=== PATIENT | male | born 1935 | race Caucasian/White ===

== ENCOUNTER 2017-02-23 12:45 | Inpatient (IN) | payer OTHER, MEDICAID ==
[~2017-02-23] VITALS: Ht 165.1 cm; Wt 77.7 kg
[~2017-02-23 12:45] MED LIST: ACET325T14 PO; ACID1TAB7 PO; ALPR0.25 PO; AMLO10TA2 PO; AMOX1TAB64 PO; ASPI-496 PO; ASPI-621 PO; ASPI-770 PO; ASPI325T4 PO; BISA10SU2 PR; BRIN10DR OP; CALC-545 PO; CEFT1FRO2 IV; CEPH-376 PO; CHOL200024 PO; CLIN300C93 PO; DAPT500V6 IV; DORZ10DR7 EACHEYE; DOXY100T9 PO; ENOX40SY4 SQ; FAMO-79 PO; HUM100IN4 SC; HUM100VI SQ; HUM100VI6 SQ; HYDR-3138 PO; HYDR-3144 PO; HYDR-3240 PO; HYDR-3307 PO; HYDR-3343 PO; HYDR12.547 PO; INSU100I28 SQ-INSULIN; INSU100V10 SQ; LEVO125T5 PO; LEVO25TA4 PO; LEVO750T26 PO; LISI-170 PO; MAGN400O4 PO; METH4TAB2 PO; METH750T87 PO; METO25TA35 PO; METO25TA91 PO; ONDA4TAB10 PO; PANT40TA3 PO; POLY17PO5 PO; PRAV40TA2 PO; SENN8.6T98 PO; SIMV40TA3 PO; SULF1TAB23 PO; SULF1TAB24 PO; SULF1TAB3 PO; TRAM50TA2 PO
[2017-02-23] MEDS ORDERED: ROPI0.5T2 PO (14:11)
[2017-02-23] MEDS ORDERED: LISI1TAB7 PO (14:11)
[2017-02-23] MEDS ORDERED: MUPI1OIN6 TP (14:11)
[2017-02-23] MEDS ORDERED: CLOT15CR6 TP (14:11)
[2017-02-23] MEDS ORDERED: LEVO125T5 PO (14:11)
[2017-02-23] MEDS ORDERED: TRAZ50TA18 PO (14:11)
[2017-02-23] MEDS ORDERED: CEPH-376 PO (14:11)
[2017-02-23] MEDS ORDERED: SODIUM CHLORIDE FLUSH 10ML SYR IVF ONE (14:30)
[2017-02-23 15:46] LABS: ASPARTATE AMINO TRANSFERASE 22 U/L (15-37); BLOOD UREA NITROGEN 49 mg/dL (7-18)
[2017-02-23] MEDS ORDERED: POLYETHYLENE GLYCOL 17 GM PACKET PO PRN (17:00)
[2017-02-23] MEDS: INSULIN REGULAR 100 UNITS/ML, 3ML VIAL SQ-INSULIN SCH ×2 (17:00→20:29)
[2017-02-23] MEDS ORDERED: ONDANSETRON 2MG/ML, 2ML IVP PRN (17:00)
[2017-02-23] MEDS ORDERED: SODIUM CHLORIDE FLUSH 10ML SYR IVF PRN (17:00)
[2017-02-23] MEDS ORDERED: HYDROcodone/APAP 5/325 TABLET ONE (18:13)
[2017-02-23] MEDS: HYDROcodone/APAP 5/325 TABLET PO PRN ×2 (18:18→22:54)
[2017-02-23] MEDS: CEFTAROLINE 600 MG in SODIUM CHLORIDE 0.9% 100 ML IV SCH (20:20)
[2017-02-23] MEDS: ENOXAPARIN 40 MG/0.4 ML SQ SCH (20:20)
[2017-02-23] MEDS: MORPHINE SULFATE 4 MG/ML, 1ML IVPush PRN (20:20)
[2017-02-23] MEDS: CALCIUM/VITAMIN D3 250-125 TABLET PO SCH (20:34)
[2017-02-23] MEDS: TRAZODONE 50MG TABLET PO SCH (20:34)
[2017-02-23] MEDS: METOPROLOL SUCCINATE 25 MG TAB.ER.24H PO SCH (20:34)
[2017-02-23] MEDS: FAMOTIDINE 20 MG TABLET PO SCH (20:34)
[2017-02-23] MEDS: ROPINIROLE 0.5MG TABLET PO SCH (20:34)
[2017-02-23] MEDS: PRAVASTATIN 40 MG TABLET PO SCH (20:34)
[2017-02-23] MEDS: SODIUM CHLORIDE FLUSH 10ML SYR IVF SCH (21:00)
[2017-02-23] MEDS: MUPIROCIN OINT 2%, 22GM TP SCH (21:00)
[2017-02-24 01:18] VITALS: BP 147/62
[2017-02-24 05:02] VITALS: BP 135/56
[2017-02-24] MEDS: INSULIN REGULAR 100 UNITS/ML, 3ML VIAL SQ-INSULIN SCH ×4 (07:00→20:46)
[2017-02-24 07:01] VITALS: BP 73/43
[2017-02-24 07:01] LABS: BLOOD UREA NITROGEN 44 mg/dL (7-18)
[2017-02-24] MEDS ORDERED: SODIUM CHLORIDE 0.9%, 500ML IVBOLUS ONE (08:00)
[2017-02-24] MEDS: LISINOPRIL 20 MG TABLET PO SCH (08:26)
[2017-02-24] MEDS: CEFTAROLINE 600 MG in SODIUM CHLORIDE 0.9% 100 ML IV SCH ×2 (08:33→20:06)
[2017-02-24] MEDS: FAMOTIDINE 20 MG TABLET PO SCH ×2 (08:35→20:07)
[2017-02-24] MEDS: ASPIRIN 325 MG TABLET PO SCH (08:35)
[2017-02-24] MEDS: LEVOTHYROXINE 125 MCG TABLET PO SCH (08:36)
[2017-02-24] MEDS ORDERED: HYDROCHLOROTHIAZIDE 25 MG TABLET PO SCH (09:00)
[2017-02-24] MEDS: CHOLECALCIFEROL 1,000 UNIT TABLET PO SCH (09:40)
[2017-02-24] MEDS: CALCIUM/VITAMIN D3 250-125 TABLET PO SCH ×2 (09:41→20:07)
[2017-02-24] MEDS: SENNA/DOCUSATE TABLET PO SCH (09:41)
[2017-02-24] MEDS: SODIUM CHLORIDE FLUSH 10ML SYR IVF SCH ×2 (09:42→20:45)
[2017-02-24] MEDS: MUPIROCIN OINT 2%, 22GM TP SCH ×2 (09:42→16:00)
[2017-02-24] MEDS: INSULIN DETEMIR 100 UNITS/ML, PEN SQ-INSULIN SCH (09:42)
[2017-02-24 13:30] VITALS: BP 117/69
[2017-02-24 18:54] VITALS: BP 116/64
[2017-02-24] MEDS: PRAVASTATIN 40 MG TABLET PO SCH (20:07)
[2017-02-24] MEDS: ENOXAPARIN 40 MG/0.4 ML SQ SCH (20:07)
[2017-02-24] MEDS: TRAZODONE 50MG TABLET PO SCH (20:07)
[2017-02-24] MEDS: ROPINIROLE 0.5MG TABLET PO SCH (20:07)
[2017-02-24 20:25] VITALS: BP 100/60
[2017-02-24] MEDS: METOPROLOL SUCCINATE 25 MG TAB.ER.24H PO SCH (20:46)
[2017-02-25 00:33] VITALS: BP 161/87
[2017-02-25] MEDS: HYDROcodone/APAP 5/325 TABLET PO PRN ×3 (06:38→20:51)
[2017-02-25] MEDS: INSULIN REGULAR 100 UNITS/ML, 3ML VIAL SQ-INSULIN SCH ×4 (07:00→20:52)
[2017-02-25 07:06] VITALS: BP 106/54
[2017-02-25] MEDS: CEFTAROLINE 600 MG in SODIUM CHLORIDE 0.9% 100 ML IV SCH ×2 (08:18→20:50)
[2017-02-25] MEDS: LEVOTHYROXINE 125 MCG TABLET PO SCH (08:20)
[2017-02-25] MEDS: FAMOTIDINE 20 MG TABLET PO SCH ×2 (08:20→20:51)
[2017-02-25] MEDS: SENNA/DOCUSATE TABLET PO SCH (08:20)
[2017-02-25] MEDS: CHOLECALCIFEROL 1,000 UNIT TABLET PO SCH (08:20)
[2017-02-25 08:21] LABS: BLOOD UREA NITROGEN 30 mg/dL (7-18)
[2017-02-25] MEDS: CALCIUM/VITAMIN D3 250-125 TABLET PO SCH ×2 (08:21→20:51)
[2017-02-25] MEDS: ASPIRIN 325 MG TABLET PO SCH (08:21)
[2017-02-25] MEDS: INSULIN DETEMIR 100 UNITS/ML, PEN SQ-INSULIN SCH (08:21)
[2017-02-25] MEDS: SODIUM CHLORIDE FLUSH 10ML SYR IVF SCH ×2 (08:21→20:50)
[2017-02-25] MEDS: LISINOPRIL 20 MG TABLET PO SCH (08:22)
[2017-02-25 13:21] VITALS: BP 112/52
[2017-02-25 19:00] VITALS: BP 120/78
[2017-02-25] MEDS: METOPROLOL SUCCINATE 25 MG TAB.ER.24H PO SCH (20:34)
[2017-02-25] MEDS: ENOXAPARIN 40 MG/0.4 ML SQ SCH (20:50)
[2017-02-25] MEDS: TRAZODONE 50MG TABLET PO SCH (20:51)
[2017-02-25] MEDS: ROPINIROLE 0.5MG TABLET PO SCH (20:51)
[2017-02-25] MEDS: PRAVASTATIN 40 MG TABLET PO SCH (20:51)
[2017-02-26 00:25] VITALS: BP 100/58
[2017-02-26 06:35] VITALS: BP 149/88
[2017-02-26] MEDS: INSULIN REGULAR 100 UNITS/ML, 3ML VIAL SQ-INSULIN SCH ×4 (07:00→21:04)
[2017-02-26] MEDS: CEFTAROLINE 600 MG in SODIUM CHLORIDE 0.9% 100 ML IV SCH ×2 (09:26→20:52)
[2017-02-26] MEDS: FAMOTIDINE 20 MG TABLET PO SCH ×2 (09:31→20:55)
[2017-02-26] MEDS: LISINOPRIL 20 MG TABLET PO SCH (09:31)
[2017-02-26] MEDS: LEVOTHYROXINE 125 MCG TABLET PO SCH (09:31)
[2017-02-26] MEDS: CHOLECALCIFEROL 1,000 UNIT TABLET PO SCH (09:31)
[2017-02-26] MEDS: ASPIRIN 325 MG TABLET PO SCH (09:31)
[2017-02-26] MEDS: CALCIUM/VITAMIN D3 250-125 TABLET PO SCH ×2 (09:32→20:55)
[2017-02-26] MEDS: INSULIN DETEMIR 100 UNITS/ML, PEN SQ-INSULIN SCH (09:32)
[2017-02-26] MEDS: SODIUM CHLORIDE FLUSH 10ML SYR IVF SCH ×2 (09:33→20:54)
[2017-02-26] MEDS: SENNA/DOCUSATE TABLET PO SCH (09:35)
[2017-02-26 11:36] VITALS: BP 138/64
[2017-02-26 13:30] VITALS: BP 154/67
[2017-02-26 18:55] VITALS: BP 111/50
[2017-02-26] MEDS: ENOXAPARIN 40 MG/0.4 ML SQ SCH (20:53)
[2017-02-26] MEDS: TRAZODONE 50MG TABLET PO SCH (20:54)
[2017-02-26] MEDS: METOPROLOL SUCCINATE 25 MG TAB.ER.24H PO SCH (20:55)
[2017-02-26] MEDS: PRAVASTATIN 40 MG TABLET PO SCH (20:55)
[2017-02-26] MEDS: ROPINIROLE 0.5MG TABLET PO SCH (20:56)
[2017-02-26] MEDS: HYDROcodone/APAP 5/325 TABLET PO PRN (21:27)
[2017-02-27 02:28] VITALS: BP 121/68
[2017-02-27 05:32] LABS: BLOOD UREA NITROGEN 28 mg/dL (7-18)
[2017-02-27 06:58] VITALS: BP 134/74
[2017-02-27] MEDS: INSULIN REGULAR 100 UNITS/ML, 3ML VIAL SQ-INSULIN SCH ×4 (07:00→20:26)
[2017-02-27] MEDS: INSULIN DETEMIR 100 UNITS/ML, PEN SQ-INSULIN SCH (08:35)
[2017-02-27] MEDS: LEVOTHYROXINE 125 MCG TABLET PO SCH (08:35)
[2017-02-27] MEDS: SENNA/DOCUSATE TABLET PO SCH (08:35)
[2017-02-27] MEDS: CALCIUM/VITAMIN D3 250-125 TABLET PO SCH ×2 (08:36→20:17)
[2017-02-27] MEDS: FAMOTIDINE 20 MG TABLET PO SCH ×2 (08:36→20:17)
[2017-02-27] MEDS: CEFTAROLINE 600 MG in SODIUM CHLORIDE 0.9% 100 ML IV SCH ×2 (08:36→20:17)
[2017-02-27] MEDS: ASPIRIN 325 MG TABLET PO SCH (08:36)
[2017-02-27] MEDS: LISINOPRIL 20 MG TABLET PO SCH (08:36)
[2017-02-27] MEDS: SODIUM CHLORIDE FLUSH 10ML SYR IVF SCH ×2 (08:36→20:17)
[2017-02-27] MEDS: CHOLECALCIFEROL 1,000 UNIT TABLET PO SCH (08:36)
[2017-02-27] MEDS: HYDROcodone/APAP 5/325 TABLET PO PRN ×2 (11:08→20:16)
[2017-02-27 14:33] VITALS: BP 120/57
[2017-02-27] MEDS ORDERED: LACTATED RINGERS 500 ML IVBOLUS ONE (17:00)
[2017-02-27 18:45] VITALS: BP 140/68
[2017-02-27] MEDS ORDERED: OMNIPAQUE 350 MG/ML, 150 ML BOTTLE ONE (18:52)
[2017-02-27] MEDS: TRAZODONE 50MG TABLET PO SCH (20:15)
[2017-02-27] MEDS: PRAVASTATIN 40 MG TABLET PO SCH (20:16)
[2017-02-27] MEDS: METOPROLOL SUCCINATE 25 MG TAB.ER.24H PO SCH (20:16)
[2017-02-27] MEDS: ROPINIROLE 0.5MG TABLET PO SCH (20:16)
[2017-02-27] MEDS: ENOXAPARIN 40 MG/0.4 ML SQ SCH (20:17)
[2017-02-28 01:21] VITALS: BP 137/69
[2017-02-28 06:22] LABS: BLOOD UREA NITROGEN 28 mg/dL (7-18)
[2017-02-28 06:37] VITALS: BP 120/64
[2017-02-28] MEDS: SENNA/DOCUSATE TABLET PO SCH (09:00)
[2017-02-28] MEDS: INSULIN DETEMIR 100 UNITS/ML, PEN SQ-INSULIN SCH (09:51)
[2017-02-28] MEDS: CALCIUM/VITAMIN D3 250-125 TABLET PO SCH ×2 (09:51→19:56)
[2017-02-28] MEDS: FAMOTIDINE 20 MG TABLET PO SCH ×2 (09:51→19:57)
[2017-02-28] MEDS: INSULIN REGULAR 100 UNITS/ML, 3ML VIAL SQ-INSULIN SCH ×4 (09:51→20:02)
[2017-02-28] MEDS: CHOLECALCIFEROL 1,000 UNIT TABLET PO SCH (09:51)
[2017-02-28] MEDS: HYDROcodone/APAP 5/325 TABLET PO PRN ×2 (09:52→22:48)
[2017-02-28] MEDS: LEVOTHYROXINE 125 MCG TABLET PO SCH (09:52)
[2017-02-28] MEDS: CEFTAROLINE 600 MG in SODIUM CHLORIDE 0.9% 100 ML IV SCH (09:52)
[2017-02-28] MEDS: LISINOPRIL 20 MG TABLET PO SCH (09:52)
[2017-02-28] MEDS: ASPIRIN 325 MG TABLET PO SCH (09:52)
[2017-02-28] MEDS: SODIUM CHLORIDE FLUSH 10ML SYR IVF SCH ×2 (09:53→19:55)
[2017-02-28] MEDS: GUAIFENESIN/DM 200-20MG, 10ML UDC PO PRN (10:03)
[2017-02-28 14:59] VITALS: BP 93/63
[2017-02-28 19:49] VITALS: BP 128/59
[2017-02-28] MEDS: ENOXAPARIN 40 MG/0.4 ML SQ SCH (19:56)
[2017-02-28] MEDS: DOXYCYCLINE 100MG TABLET PO SCH (19:57)
[2017-02-28] MEDS: METOPROLOL SUCCINATE 25 MG TAB.ER.24H PO SCH (19:57)
[2017-02-28] MEDS: PRAVASTATIN 40 MG TABLET PO SCH (19:58)
[2017-02-28] MEDS: TRAZODONE 50MG TABLET PO SCH (22:48)
[2017-02-28] MEDS: ROPINIROLE 0.5MG TABLET PO SCH (22:48)
[2017-03-01 01:10] VITALS: BP 99/62
[2017-03-01 05:56] LABS: BLOOD UREA NITROGEN 31 mg/dL (7-18)
[2017-03-01] MEDS: INSULIN REGULAR 100 UNITS/ML, 3ML VIAL SQ-INSULIN SCH ×4 (07:00→21:00)
[2017-03-01] MEDS ORDERED: DEXTROMETHORPHAN 30 MG/5 ML ORAL SOL PO PRN (07:30)
[2017-03-01] MEDS: LISINOPRIL 20 MG TABLET PO SCH ×2 (09:00→11:29)
[2017-03-01 09:09] VITALS: BP 121/62
[2017-03-01] MEDS: INSULIN DETEMIR 100 UNITS/ML, PEN SQ-INSULIN SCH (09:47)
[2017-03-01] MEDS: CALCIUM/VITAMIN D3 250-125 TABLET PO SCH ×2 (09:52→21:43)
[2017-03-01] MEDS: CHOLECALCIFEROL 1,000 UNIT TABLET PO SCH (09:52)
[2017-03-01] MEDS: GUAIFENESIN ER 600 MG TABLET PO SCH ×2 (09:52→21:43)
[2017-03-01] MEDS: LEVOTHYROXINE 125 MCG TABLET PO SCH (09:53)
[2017-03-01] MEDS: ASPIRIN 325 MG TABLET PO SCH (09:54)
[2017-03-01] MEDS: DOXYCYCLINE 100MG TABLET PO SCH ×2 (09:55→21:44)
[2017-03-01] MEDS: SENNA/DOCUSATE TABLET PO SCH (09:56)
[2017-03-01] MEDS: FAMOTIDINE 20 MG TABLET PO SCH (09:57)
[2017-03-01] MEDS: SODIUM CHLORIDE FLUSH 10ML SYR IVF SCH ×2 (09:57→21:42)
[2017-03-01] MEDS ORDERED: ALBUTEROL SULFATE 2.5 MG/3 ML ONE (11:19)
[2017-03-01] MEDS: ALBUTEROL SULFATE 2.5 MG/3 ML NPPB SCH ×3 (11:37→18:56)
[2017-03-01 15:49] VITALS: BP 118/62
[2017-03-01] MEDS: HYDROcodone/APAP 5/325 TABLET PO PRN (15:54)
[2017-03-01 19:24] VITALS: BP 123/71
[2017-03-01] MEDS: ENOXAPARIN 40 MG/0.4 ML SQ SCH (20:00)
[2017-03-01] MEDS: ROPINIROLE 0.5MG TABLET PO SCH (21:42)
[2017-03-01] MEDS: TRAZODONE 50MG TABLET PO SCH (21:42)
[2017-03-01] MEDS: PRAVASTATIN 40 MG TABLET PO SCH (21:44)
[2017-03-01] MEDS: METOPROLOL SUCCINATE 25 MG TAB.ER.24H PO SCH (21:44)
[2017-03-02] VITALS (11 sets, daily range): BP systolic 129–164; BP diastolic 56–82
[2017-03-02 04:40] LABS: BLOOD UREA NITROGEN 28 mg/dL (7-18)
[2017-03-02] MEDS: INSULIN REGULAR 100 UNITS/ML, 3ML VIAL SQ-INSULIN SCH ×4 (07:00→22:15)
[2017-03-02] MEDS: ALBUTEROL SULFATE 2.5 MG/3 ML NPPB SCH ×4 (07:00→22:10)
[2017-03-02] MEDS: INSULIN DETEMIR 100 UNITS/ML, PEN SQ-INSULIN SCH (09:00)
[2017-03-02] MEDS: SENNA/DOCUSATE TABLET PO SCH ×2 (09:00→09:06)
[2017-03-02] MEDS: SODIUM CHLORIDE FLUSH 10ML SYR IVF SCH ×2 (09:05→22:20)
[2017-03-02] MEDS: LISINOPRIL 20 MG TABLET PO SCH (09:06)
[2017-03-02] MEDS: FAMOTIDINE 20 MG TABLET PO SCH (09:06)
[2017-03-02] MEDS: CHOLECALCIFEROL 1,000 UNIT TABLET PO SCH (09:06)
[2017-03-02] MEDS: DOXYCYCLINE 100MG TABLET PO SCH ×2 (09:06→22:20)
[2017-03-02] MEDS: LEVOTHYROXINE 125 MCG TABLET PO SCH (09:06)
[2017-03-02] MEDS: GUAIFENESIN ER 600 MG TABLET PO SCH ×2 (09:07→22:19)
[2017-03-02] MEDS: CALCIUM/VITAMIN D3 250-125 TABLET PO SCH ×2 (09:07→22:19)
[2017-03-02] MEDS ORDERED: SUCCINYLCHOLINE 20 MG/ML, 10ML ONE (10:11)
[2017-03-02] MEDS ORDERED: PHENYLEPHRINE 10 MG/ML ONE (10:11)
[2017-03-02] MEDS ORDERED: PROPOFOL 10 MG/ML, 20ML ONE (10:11)
[2017-03-02] MEDS ORDERED: EPHEDRINE 50 MG/ML, 1ML ONE (10:11)
[2017-03-02] MEDS ORDERED: ONDANSETRON 2MG/ML, 2ML ONE (10:11)
[2017-03-02] MEDS ORDERED: CEFAZOLIN 1,000 MG ONE (10:11)
[2017-03-02] MEDS ORDERED: BACITRACIN 50,000 UNIT ONE (12:45)
[2017-03-02] MEDS ORDERED: PROTAMINE SULFATE 10 MG/ML, 5ML ONE (12:45)
[2017-03-02] MEDS ORDERED: LIDOCAINE/PF 1%, 30ML ONE (12:45)
[2017-03-02] MEDS ORDERED: THROMBIN 5,000 UNIT VIAL TP ONE ×3 (12:45→18:02)
[2017-03-02] MEDS ORDERED: HEPARIN 1,000 UNITS/ML, 10ML ONE ×2 (12:45→15:34)
[2017-03-02] MEDS ORDERED: FENTANYL PF 250 MCG/5ML ONE (14:24)
[2017-03-02] MEDS ORDERED: hydrALAzine 20 MG/ML, 1ML IV PRN (17:00)
[2017-03-02] MEDS ORDERED: FENTANYL PF 100 MCG/2ML IV PRN (17:00)
[2017-03-02] MEDS ORDERED: HYDROcodone/APAP 7.5-325MG/15ML UDC PO PRN (17:00)
[2017-03-02] MEDS ORDERED: LABETALOL 5MG/ML, 20ML IV PRN (17:00)
[2017-03-02] MEDS ORDERED: ONDANSETRON 2MG/ML, 2ML IVPush PRN (17:00)
[2017-03-02] MEDS ORDERED: HYDROmorphone 1 MG/ML, 1ML IV PRN (17:00)
[2017-03-02] MEDS ORDERED: VISIPAQUE 270 MG/ML, 50ML BOTTLE ONE (18:20)
[2017-03-02] MEDS ORDERED: CLOPIDOGREL 300 MG TABLET PO ONE (18:30)
[2017-03-02] MEDS: DORZOLAMIDE OPHTH 2%, 10ML EACHEYE SCH (22:16)
[2017-03-02] MEDS: TIMOLOL OPHTH 0.5%, 5ML EACHEYE SCH (22:17)
[2017-03-02] MEDS: ENOXAPARIN 40 MG/0.4 ML SQ SCH (22:18)
[2017-03-02] MEDS: PRAVASTATIN 40 MG TABLET PO SCH (22:19)
[2017-03-02] MEDS: TRAZODONE 50MG TABLET PO SCH (22:19)
[2017-03-02] MEDS: HYDROcodone/APAP 5/325 TABLET PO PRN (22:19)
[2017-03-02] MEDS: ASPIRIN 325 MG TABLET PO SCH (22:19)
[2017-03-02] MEDS: METOPROLOL SUCCINATE 25 MG TAB.ER.24H PO SCH (22:20)
[2017-03-02] MEDS: ROPINIROLE 0.5MG TABLET PO SCH (22:20)
[2017-03-02] MEDS: MORPHINE SULFATE 4 MG/ML, 1ML IVPush PRN (23:34)
[2017-03-03 00:14] VITALS: BP 104/62
[2017-03-03] MEDS: MORPHINE SULFATE 4 MG/ML, 1ML IVPush PRN (02:10)
[2017-03-03 04:03] LABS: BLOOD UREA NITROGEN 23 mg/dL (7-18)
[2017-03-03] MEDS: ALBUTEROL SULFATE 2.5 MG/3 ML NPPB SCH (07:00)
[2017-03-03 08:00] VITALS: BP 122/71
[2017-03-03] MEDS: INSULIN REGULAR 100 UNITS/ML, 3ML VIAL SQ-INSULIN SCH ×4 (08:44→22:14)
[2017-03-03] MEDS: TIMOLOL OPHTH 0.5%, 5ML EACHEYE SCH ×2 (08:55→21:43)
[2017-03-03] MEDS: DORZOLAMIDE OPHTH 2%, 10ML EACHEYE SCH ×2 (08:56→21:43)
[2017-03-03] MEDS: LISINOPRIL 20 MG TABLET PO SCH (08:56)
[2017-03-03] MEDS: SODIUM CHLORIDE FLUSH 10ML SYR IVF SCH ×2 (08:56→21:00)
[2017-03-03] MEDS: CLOPIDOGREL 75 MG TABLET PO SCH (08:57)
[2017-03-03] MEDS: ASPIRIN 325 MG TABLET PO SCH (08:57)
[2017-03-03] MEDS: FAMOTIDINE 20 MG TABLET PO SCH (08:57)
[2017-03-03] MEDS: DOXYCYCLINE 100MG TABLET PO SCH ×2 (08:57→21:44)
[2017-03-03] MEDS: CHOLECALCIFEROL 1,000 UNIT TABLET PO SCH (08:57)
[2017-03-03] MEDS: SENNA/DOCUSATE TABLET PO SCH (08:57)
[2017-03-03] MEDS: CALCIUM/VITAMIN D3 250-125 TABLET PO SCH ×2 (08:57→21:44)
[2017-03-03] MEDS: HYDROcodone/APAP 5/325 TABLET PO PRN (08:57)
[2017-03-03] MEDS: LEVOTHYROXINE 125 MCG TABLET PO SCH (08:57)
[2017-03-03] MEDS: GUAIFENESIN ER 600 MG TABLET PO SCH ×2 (08:57→21:44)
[2017-03-03] MEDS: INSULIN DETEMIR 100 UNITS/ML, PEN SQ-INSULIN SCH (08:58)
[2017-03-03] MEDS: VANCOMYCIN 1,200 MG in SODIUM CHLORIDE 0.9% 250 ML IV SCH (10:48)
[2017-03-03 13:19] VITALS: BP 100/52
[2017-03-03 15:20] VITALS: BP 92/48
[2017-03-03] MEDS ORDERED: SODIUM CHLORIDE 0.9%, 500ML IVBOLUS ONE ×2 (15:30→16:30)
[2017-03-03 16:17] LABS: IS PT STATUS REG ER OR PRE ER? NO
[2017-03-03 16:53] LABS: BLOOD UREA NITROGEN 29 mg/dL (7-18)
[2017-03-03] MEDS ORDERED: OMNIPAQUE 350 MG/ML, 100ML BOTTLE ONE (17:27)
[2017-03-03] MEDS ORDERED: SODIUM CHLORIDE 0.9% 1,000ML IVBOLUS ONE (19:30)
[2017-03-03 19:46] VITALS: BP 87/57
[2017-03-03] MEDS: METOPROLOL SUCCINATE 25 MG TAB.ER.24H PO SCH (21:00)
[2017-03-03] MEDS: ENOXAPARIN 40 MG/0.4 ML SQ SCH (21:43)
[2017-03-03] MEDS: TRAZODONE 50MG TABLET PO SCH (21:44)
[2017-03-03] MEDS: PRAVASTATIN 40 MG TABLET PO SCH (21:44)
[2017-03-03] MEDS: ROPINIROLE 0.5MG TABLET PO SCH (21:44)
[2017-03-03 22:53] LABS: IS PT STATUS REG ER OR PRE ER? NO
[2017-03-04] VITALS (8 sets, daily range): BP systolic 80–127; BP diastolic 43–67
[2017-03-04] MEDS: HYDROcodone/APAP 5/325 TABLET PO PRN ×4 (03:47→22:28)
[2017-03-04 04:44] LABS: BLOOD UREA NITROGEN 32 mg/dL (7-18)
[2017-03-04 04:51] LABS: IS PT STATUS REG ER OR PRE ER? NO
[2017-03-04] MEDS: INSULIN REGULAR 100 UNITS/ML, 3ML VIAL SQ-INSULIN SCH ×4 (07:00→22:28)
[2017-03-04] MEDS: SODIUM CHLORIDE 0.9% 1,000 ML IV SCH ×3 (07:50→20:20)
[2017-03-04] MEDS: ALBUTEROL SULFATE 2.5 MG/3 ML NPPB PRN (08:43)
[2017-03-04] MEDS: VANCOMYCIN 1,200 MG in SODIUM CHLORIDE 0.9% 250 ML IV SCH (09:22)
[2017-03-04] MEDS: CALCIUM/VITAMIN D3 250-125 TABLET PO SCH ×2 (09:24→22:31)
[2017-03-04] MEDS: LEVOTHYROXINE 125 MCG TABLET PO SCH (09:24)
[2017-03-04] MEDS: ASPIRIN 325 MG TABLET PO SCH (09:24)
[2017-03-04] MEDS: FAMOTIDINE 20 MG TABLET PO SCH (09:24)
[2017-03-04] MEDS: GUAIFENESIN ER 600 MG TABLET PO SCH ×2 (09:24→22:30)
[2017-03-04] MEDS: CHOLECALCIFEROL 1,000 UNIT TABLET PO SCH (09:24)
[2017-03-04] MEDS: TIMOLOL OPHTH 0.5%, 5ML EACHEYE SCH ×2 (09:25→22:27)
[2017-03-04] MEDS: BENZONATATE 100 MG CAPSULE PO SCH ×3 (09:25→21:00)
[2017-03-04] MEDS: SODIUM CHLORIDE FLUSH 10ML SYR IVF SCH ×2 (09:25→22:33)
[2017-03-04] MEDS: SENNA/DOCUSATE TABLET PO SCH (09:25)
[2017-03-04] MEDS: DORZOLAMIDE OPHTH 2%, 10ML EACHEYE SCH ×2 (09:25→22:27)
[2017-03-04] MEDS: DOXYCYCLINE 100MG TABLET PO SCH ×2 (09:25→22:31)
[2017-03-04] MEDS: INSULIN DETEMIR 100 UNITS/ML, PEN SQ-INSULIN SCH (09:32)
[2017-03-04] MEDS ORDERED: SODIUM CHLORIDE 0.9%, 500ML IVBOLUS ONE (13:00)
[2017-03-04] MEDS: CLOPIDOGREL 75 MG TABLET PO SCH (13:02)
[2017-03-04] MEDS: HYDROCORTISONE 100 MG INJ. IVPush SCH ×2 (15:15→22:28)
[2017-03-04] MEDS: FENTANYL PF 100 MCG/2ML IVPush PRN (15:38)
[2017-03-04] MEDS ORDERED: ENOXAPARIN 30 MG/0.3 ML SQ SCH (21:00)
[2017-03-04] MEDS: TRAZODONE 50MG TABLET PO SCH (22:28)
[2017-03-04] MEDS: ROPINIROLE 0.5MG TABLET PO SCH (22:29)
[2017-03-04] MEDS: PRAVASTATIN 40 MG TABLET PO SCH (22:30)
[2017-03-05 00:56] VITALS: BP 133/69
[2017-03-05] MEDS: FENTANYL PF 100 MCG/2ML IVPush PRN ×7 (02:31→22:06)
[2017-03-05 04:33] LABS: ASPARTATE AMINO TRANSFERASE 14 U/L (15-37); BLOOD UREA NITROGEN 39 mg/dL (7-18)
[2017-03-05 06:27] VITALS: BP 120/75
[2017-03-05] MEDS: SODIUM CHLORIDE 0.9% 1,000 ML IV SCH ×2 (06:29→13:10)
[2017-03-05] MEDS: HYDROCORTISONE 100 MG INJ. IVPush SCH ×3 (07:56→22:06)
[2017-03-05] MEDS: INSULIN REGULAR 100 UNITS/ML, 3ML VIAL SQ-INSULIN SCH ×4 (07:56→22:07)
[2017-03-05] MEDS: ALBUTEROL SULFATE 2.5 MG/3 ML NPPB PRN (09:13)
[2017-03-05] MEDS: TIMOLOL OPHTH 0.5%, 5ML EACHEYE SCH ×2 (09:34→22:04)
[2017-03-05] MEDS: DORZOLAMIDE OPHTH 2%, 10ML EACHEYE SCH ×2 (09:34→22:04)
[2017-03-05] MEDS: INSULIN DETEMIR 100 UNITS/ML, PEN SQ-INSULIN SCH (09:35)
[2017-03-05] MEDS: SODIUM CHLORIDE FLUSH 10ML SYR IVF SCH ×2 (09:35→22:07)
[2017-03-05] MEDS: CALCIUM/VITAMIN D3 250-125 TABLET PO SCH ×2 (09:36→22:06)
[2017-03-05] MEDS: SENNA/DOCUSATE TABLET PO SCH (09:36)
[2017-03-05] MEDS: CLOPIDOGREL 75 MG TABLET PO SCH (09:36)
[2017-03-05] MEDS: ASPIRIN 325 MG TABLET PO SCH (09:36)
[2017-03-05] MEDS: CHOLECALCIFEROL 1,000 UNIT TABLET PO SCH (09:36)
[2017-03-05] MEDS: LEVOTHYROXINE 125 MCG TABLET PO SCH (09:36)
[2017-03-05] MEDS: GUAIFENESIN ER 600 MG TABLET PO SCH ×2 (09:36→22:06)
[2017-03-05] MEDS: BENZONATATE 100 MG CAPSULE PO SCH ×3 (09:36→21:00)
[2017-03-05] MEDS: FAMOTIDINE 20 MG TABLET PO SCH (09:36)
[2017-03-05] MEDS: DOXYCYCLINE 100MG TABLET PO SCH (09:37)
[2017-03-05 11:23] LABS: HIT LOT CART23704/KIT23705
[2017-03-05 11:46] LABS: FIBRINOGEN 457 mg/dL (200-340); PROTIME 10.7 Seconds (9.6-11.5); PTT 31 Seconds (25-31)
[2017-03-05] MEDS ORDERED: ZINC OXIDE TP PRN (12:00)
[2017-03-05 12:17] LABS: HIT OBC PASS; HIT RESULT NEGATIVE (NEGATIVE)
[2017-03-05 15:06] VITALS: BP 113/56
[2017-03-05 18:30] VITALS: BP 131/71
[2017-03-05] MEDS: PRAVASTATIN 40 MG TABLET PO SCH (22:06)
[2017-03-05] MEDS: ROPINIROLE 0.5MG TABLET PO SCH (22:06)
[2017-03-05] MEDS: TRAZODONE 50MG TABLET PO SCH (22:06)
[2017-03-06 03:20] VITALS: BP 138/71
[2017-03-06] MEDS: FENTANYL PF 100 MCG/2ML IVPush PRN ×4 (04:19→21:52)
[2017-03-06] MEDS: LEVOTHYROXINE 125 MCG TABLET PO SCH (06:25)
[2017-03-06] MEDS ORDERED: SODIUM CHLORIDE 0.9% 1,000 ML IV SCH (07:00)
[2017-03-06 07:05] VITALS: BP 132/72
[2017-03-06] MEDS: CHOLECALCIFEROL 1,000 UNIT TABLET PO SCH (09:24)
[2017-03-06] MEDS: DOXYCYCLINE 100MG TABLET PO SCH (09:24)
[2017-03-06] MEDS: CLOPIDOGREL 75 MG TABLET PO SCH (09:25)
[2017-03-06] MEDS: CALCIUM/VITAMIN D3 250-125 TABLET PO SCH ×2 (09:29→21:52)
[2017-03-06] MEDS: FAMOTIDINE 20 MG TABLET PO SCH (09:29)
[2017-03-06] MEDS: GUAIFENESIN ER 600 MG TABLET PO SCH ×2 (09:29→21:53)
[2017-03-06] MEDS: ASPIRIN 325 MG TABLET PO SCH (09:29)
[2017-03-06] MEDS: HYDROCORTISONE 100 MG INJ. IVPush SCH ×2 (09:30→17:09)
[2017-03-06] MEDS: INSULIN DETEMIR 100 UNITS/ML, PEN SQ-INSULIN SCH (09:30)
[2017-03-06] MEDS: INSULIN REGULAR 100 UNITS/ML, 3ML VIAL SQ-INSULIN SCH ×4 (09:30→21:51)
[2017-03-06] MEDS: SENNA/DOCUSATE TABLET PO SCH (09:30)
[2017-03-06] MEDS: BENZONATATE 100 MG CAPSULE PO SCH ×3 (09:31→21:00)
[2017-03-06] MEDS: SODIUM CHLORIDE FLUSH 10ML SYR IVF SCH ×2 (09:31→21:44)
[2017-03-06] MEDS: DORZOLAMIDE OPHTH 2%, 10ML EACHEYE SCH ×2 (09:31→21:43)
[2017-03-06] MEDS: TIMOLOL OPHTH 0.5%, 5ML EACHEYE SCH ×2 (09:31→21:43)
[2017-03-06] MEDS: ALBUTEROL SULFATE 2.5 MG/3 ML NPPB PRN (13:17)
[2017-03-06 14:23] VITALS: BP 128/84
[2017-03-06] MEDS: ALBUTEROL SULFATE 2.5 MG/3 ML NPPB SCH ×4 (15:00→20:28)
[2017-03-06 19:55] VITALS: BP 149/76
[2017-03-06] MEDS: PRAVASTATIN 40 MG TABLET PO SCH (21:51)
[2017-03-06] MEDS: ROPINIROLE 0.5MG TABLET PO SCH (21:51)
[2017-03-06] MEDS: TRAZODONE 50MG TABLET PO SCH (21:56)
[2017-03-07 01:14] VITALS: BP 150/60
[2017-03-07] MEDS: HYDROCORTISONE 100 MG INJ. IVPush SCH ×3 (01:34→16:42)
[2017-03-07] MEDS: ALBUTEROL SULFATE 2.5 MG/3 ML NPPB SCH ×5 (05:10→19:49)
[2017-03-07] MEDS: LORazepam 2 MG/ML, 1ML IVPush PRN ×2 (05:29→17:52)
[2017-03-07 06:22] VITALS: BP 133/76
[2017-03-07 06:31] LABS: BLOOD UREA NITROGEN 31 mg/dL (7-18)
[2017-03-07] MEDS: LEVOTHYROXINE 125 MCG TABLET PO SCH (06:35)
[2017-03-07] MEDS: INSULIN REGULAR 100 UNITS/ML, 3ML VIAL SQ-INSULIN SCH ×4 (07:00→21:22)
[2017-03-07] MEDS ORDERED: CATHFLO-ALTEPLASE 2 MG/2 ML CATHFLUSH ONE (08:00)
[2017-03-07] MEDS: DORZOLAMIDE OPHTH 2%, 10ML EACHEYE SCH ×2 (08:41→21:11)
[2017-03-07] MEDS: SODIUM CHLORIDE FLUSH 10ML SYR IVF SCH ×2 (08:41→21:12)
[2017-03-07] MEDS: TIMOLOL OPHTH 0.5%, 5ML EACHEYE SCH ×2 (08:41→20:49)
[2017-03-07] MEDS: DOXYCYCLINE 100MG TABLET PO SCH (08:42)
[2017-03-07] MEDS: BENZONATATE 100 MG CAPSULE PO SCH ×3 (08:42→21:00)
[2017-03-07] MEDS: CHOLECALCIFEROL 1,000 UNIT TABLET PO SCH (08:42)
[2017-03-07] MEDS: CALCIUM/VITAMIN D3 250-125 TABLET PO SCH ×2 (08:43→21:12)
[2017-03-07] MEDS: ASPIRIN 325 MG TABLET PO SCH (08:43)
[2017-03-07] MEDS: SENNA/DOCUSATE TABLET PO SCH (08:43)
[2017-03-07] MEDS: FAMOTIDINE 20 MG TABLET PO SCH (08:43)
[2017-03-07] MEDS: CLOPIDOGREL 75 MG TABLET PO SCH (08:43)
[2017-03-07] MEDS: GUAIFENESIN ER 600 MG TABLET PO SCH ×2 (08:43→21:13)
[2017-03-07] MEDS: INSULIN DETEMIR 100 UNITS/ML, PEN SQ-INSULIN SCH (08:44)
[2017-03-07 14:03] VITALS: BP 153/119
[2017-03-07] MEDS: FUROSEMIDE 20 MG TABLET PO SCH (15:40)
[2017-03-07] MEDS: HYDROcodone/APAP 5/325 TABLET PO PRN (17:52)
[2017-03-07 20:32] VITALS: BP 164/87
[2017-03-07] MEDS: FENTANYL PF 100 MCG/2ML IVPush PRN (21:12)
[2017-03-07] MEDS: TRAZODONE 50MG TABLET PO SCH (21:13)
[2017-03-07] MEDS: PRAVASTATIN 40 MG TABLET PO SCH (21:13)
[2017-03-07] MEDS: ROPINIROLE 0.5MG TABLET PO SCH (21:13)
[2017-03-08] MEDS: FENTANYL PF 100 MCG/2ML IVPush PRN (01:50)
[2017-03-08] MEDS: HYDROCORTISONE 100 MG INJ. IVPush SCH ×4 (01:50→21:39)
[2017-03-08 01:51] VITALS: BP 151/71
[2017-03-08] MEDS: ALBUTEROL SULFATE 2.5 MG/3 ML NPPB SCH ×5 (02:12→20:30)
[2017-03-08] MEDS: LEVOTHYROXINE 125 MCG TABLET PO SCH (06:35)
[2017-03-08 06:43] LABS: BLOOD UREA NITROGEN 33 mg/dL (7-18)
[2017-03-08 07:09] VITALS: BP 169/71
[2017-03-08] MEDS: INSULIN REGULAR 100 UNITS/ML, 3ML VIAL SQ-INSULIN SCH ×4 (08:33→21:44)
[2017-03-08] MEDS: MORPHINE SULFATE 4 MG/ML, 1ML IVPush PRN ×2 (08:33→11:45)
[2017-03-08] MEDS: INSULIN DETEMIR 100 UNITS/ML, PEN SQ-INSULIN SCH (08:34)
[2017-03-08] MEDS: CHOLECALCIFEROL 1,000 UNIT TABLET PO SCH (08:34)
[2017-03-08] MEDS: BENZONATATE 100 MG CAPSULE PO SCH ×3 (08:34→21:38)
[2017-03-08] MEDS: DOXYCYCLINE 100MG TABLET PO SCH (08:34)
[2017-03-08] MEDS: CLOPIDOGREL 75 MG TABLET PO SCH (08:35)
[2017-03-08] MEDS: ASPIRIN 325 MG TABLET PO SCH (08:35)
[2017-03-08] MEDS: FAMOTIDINE 20 MG TABLET PO SCH (08:35)
[2017-03-08] MEDS: CALCIUM/VITAMIN D3 250-125 TABLET PO SCH ×2 (08:35→21:38)
[2017-03-08] MEDS: FUROSEMIDE 20 MG TABLET PO SCH (08:35)
[2017-03-08] MEDS: GUAIFENESIN ER 600 MG TABLET PO SCH ×2 (08:35→21:37)
[2017-03-08] MEDS: SENNA/DOCUSATE TABLET PO SCH (08:35)
[2017-03-08] MEDS: POTASSIUM CHLORIDE 20 MEQ TAB.ER.PRT PO SCH (08:35)
[2017-03-08] MEDS: DORZOLAMIDE OPHTH 2%, 10ML EACHEYE SCH ×2 (08:36→21:37)
[2017-03-08] MEDS: TIMOLOL OPHTH 0.5%, 5ML EACHEYE SCH ×2 (08:46→21:37)
[2017-03-08] MEDS ORDERED: ZINC OXIDE ONE (08:56)
[2017-03-08] MEDS: SODIUM CHLORIDE FLUSH 10ML SYR IVF SCH ×2 (11:45→21:37)
[2017-03-08] MEDS ORDERED: FUROSEMIDE 40 MG/4 ML IV ONE (12:00)
[2017-03-08] MEDS: ENOXAPARIN 40 MG/0.4 ML SQ SCH (12:17)
[2017-03-08 13:33] VITALS: BP 158/84
[2017-03-08 19:35] VITALS: BP 146/89
[2017-03-08] MEDS: TRAZODONE 50MG TABLET PO SCH (21:37)
[2017-03-08] MEDS: HYDROcodone/APAP 5/325 TABLET PO PRN (21:38)
[2017-03-08] MEDS: ROPINIROLE 0.5MG TABLET PO SCH (21:38)
[2017-03-08] MEDS: PRAVASTATIN 40 MG TABLET PO SCH (21:38)
[2017-03-09 00:08] VITALS: BP 120/67
[2017-03-09 04:35] LABS: BLOOD UREA NITROGEN 36 mg/dL (7-18)
[2017-03-09 05:06] LABS: SRA, LOW DOSE HEPARIN <1 % (0-20)
[2017-03-09] MEDS: HYDROCORTISONE 100 MG INJ. IVPush SCH ×3 (05:28→22:22)
[2017-03-09] MEDS: LEVOTHYROXINE 125 MCG TABLET PO SCH (05:28)
[2017-03-09 06:35] VITALS: BP 143/74
[2017-03-09] MEDS: INSULIN REGULAR 100 UNITS/ML, 3ML VIAL SQ-INSULIN SCH ×4 (07:00→22:17)
[2017-03-09] MEDS: ALBUTEROL SULFATE 2.5 MG/3 ML NPPB SCH ×4 (08:10→19:35)
[2017-03-09] MEDS: BENZONATATE 100 MG CAPSULE PO SCH ×3 (09:00→22:18)
[2017-03-09] MEDS: SODIUM CHLORIDE FLUSH 10ML SYR IVF SCH ×2 (09:06→22:21)
[2017-03-09] MEDS: DORZOLAMIDE OPHTH 2%, 10ML EACHEYE SCH ×2 (09:06→22:21)
[2017-03-09] MEDS: GUAIFENESIN ER 600 MG TABLET PO SCH ×2 (09:07→22:20)
[2017-03-09] MEDS: TIMOLOL OPHTH 0.5%, 5ML EACHEYE SCH ×2 (09:07→22:16)
[2017-03-09] MEDS: CHOLECALCIFEROL 1,000 UNIT TABLET PO SCH (09:07)
[2017-03-09] MEDS: HYDROcodone/APAP 5/325 TABLET PO PRN ×3 (09:07→21:15)
[2017-03-09] MEDS: FUROSEMIDE 20 MG TABLET PO SCH (09:08)
[2017-03-09] MEDS: SENNA/DOCUSATE TABLET PO SCH (09:08)
[2017-03-09] MEDS: DOXYCYCLINE 100MG TABLET PO SCH (09:08)
[2017-03-09] MEDS: CLOPIDOGREL 75 MG TABLET PO SCH (09:08)
[2017-03-09] MEDS: CALCIUM/VITAMIN D3 250-125 TABLET PO SCH ×2 (09:08→22:17)
[2017-03-09] MEDS: FAMOTIDINE 20 MG TABLET PO SCH (09:09)
[2017-03-09] MEDS: POTASSIUM CHLORIDE 20 MEQ TAB.ER.PRT PO SCH (09:09)
[2017-03-09] MEDS: ASPIRIN 325 MG TABLET PO SCH (09:09)
[2017-03-09] MEDS: INSULIN DETEMIR 100 UNITS/ML, PEN SQ-INSULIN SCH (09:14)
[2017-03-09] MEDS: ENOXAPARIN 40 MG/0.4 ML SQ SCH (12:10)
[2017-03-09 15:30] VITALS: BP 154/83
[2017-03-09] MEDS: FUROSEMIDE 40 MG/4 ML IV SCH (17:12)
[2017-03-09 18:54] VITALS: BP 136/72
[2017-03-09] MEDS: PRAVASTATIN 40 MG TABLET PO SCH (22:17)
[2017-03-09] MEDS: TRAZODONE 50MG TABLET PO SCH (22:17)
[2017-03-09] MEDS: ROPINIROLE 0.5MG TABLET PO SCH (22:17)
[2017-03-10 00:59] VITALS: BP 130/72
[2017-03-10] MEDS: HYDROcodone/APAP 5/325 TABLET PO PRN ×2 (02:55→20:30)
[2017-03-10 03:25] LABS: BLOOD UREA NITROGEN 37 mg/dL (7-18)
[2017-03-10 03:41] LABS: DIFF TOTAL CELLS COUNTED 100 CELL DIFF
[2017-03-10 03:45] LABS: VERIFY COUNTS? YES
[2017-03-10 03:46] LABS: ANISOCYTOSIS 1+
[2017-03-10 03:47] LABS: POLYCHROMASIA 1+
[2017-03-10] MEDS: LEVOTHYROXINE 125 MCG TABLET PO SCH (04:39)
[2017-03-10] MEDS: HYDROCORTISONE 100 MG INJ. IVPush SCH ×3 (04:39→21:35)
[2017-03-10] MEDS: ALBUTEROL SULFATE 2.5 MG/3 ML NPPB SCH ×4 (06:45→19:45)
[2017-03-10 08:07] VITALS: BP 125/64
[2017-03-10] MEDS: INSULIN REGULAR 100 UNITS/ML, 3ML VIAL SQ-INSULIN SCH ×4 (08:41→21:00)
[2017-03-10] MEDS: FUROSEMIDE 40 MG/4 ML IV SCH ×2 (08:41→18:27)
[2017-03-10] MEDS: SENNA/DOCUSATE TABLET PO SCH (08:42)
[2017-03-10] MEDS: GUAIFENESIN ER 600 MG TABLET PO SCH ×2 (08:43→21:27)
[2017-03-10] MEDS: FAMOTIDINE 20 MG TABLET PO SCH (08:43)
[2017-03-10] MEDS: BENZONATATE 100 MG CAPSULE PO SCH ×3 (08:43→21:00)
[2017-03-10] MEDS: CALCIUM/VITAMIN D3 250-125 TABLET PO SCH ×2 (08:43→21:27)
[2017-03-10] MEDS: CLOPIDOGREL 75 MG TABLET PO SCH (08:43)
[2017-03-10] MEDS: ASPIRIN 325 MG TABLET PO SCH (08:43)
[2017-03-10] MEDS: DOXYCYCLINE 100MG TABLET PO SCH (08:43)
[2017-03-10] MEDS: CHOLECALCIFEROL 1,000 UNIT TABLET PO SCH (08:43)
[2017-03-10] MEDS: POTASSIUM CHLORIDE 20 MEQ TAB.ER.PRT PO SCH (08:43)
[2017-03-10] MEDS: SODIUM CHLORIDE FLUSH 10ML SYR IVF SCH ×2 (08:44→21:35)
[2017-03-10] MEDS: INSULIN DETEMIR 100 UNITS/ML, PEN SQ-INSULIN SCH (08:45)
[2017-03-10] MEDS: TIMOLOL OPHTH 0.5%, 5ML EACHEYE SCH ×2 (08:54→21:26)
[2017-03-10] MEDS: DORZOLAMIDE OPHTH 2%, 10ML EACHEYE SCH ×2 (08:54→21:34)
[2017-03-10] MEDS ORDERED: ZINC OXIDE ONE (11:07)
[2017-03-10] MEDS: ALBUMIN HUMAN 25% 50 ML IV SCH ×2 (11:18→20:45)
[2017-03-10] MEDS: ENOXAPARIN 40 MG/0.4 ML SQ SCH (12:09)
[2017-03-10 12:21] VITALS: BP 122/65
[2017-03-10] MEDS: SODIUM BICARBONATE 4.2%, 5ML NPPB SCH (19:45)
[2017-03-10 20:36] VITALS: BP 121/75
[2017-03-10] MEDS: TRAZODONE 50MG TABLET PO SCH (21:27)
[2017-03-10] MEDS: ROPINIROLE 0.5MG TABLET PO SCH (22:10)
[2017-03-10] MEDS: PRAVASTATIN 40 MG TABLET PO SCH (22:10)
[2017-03-11 04:13] VITALS: BP 135/74
[2017-03-11] MEDS: LEVOTHYROXINE 125 MCG TABLET PO SCH (04:19)
[2017-03-11] MEDS: ALBUMIN HUMAN 25% 50 ML IV SCH ×3 (04:19→20:49)
[2017-03-11] MEDS: HYDROcodone/APAP 5/325 TABLET PO PRN ×4 (04:20→20:57)
[2017-03-11] MEDS: HYDROCORTISONE 100 MG INJ. IVPush SCH ×3 (04:45→21:44)
[2017-03-11 05:31] LABS: BLOOD UREA NITROGEN 35 mg/dL (7-18)
[2017-03-11 06:36] VITALS: BP 138/69
[2017-03-11] MEDS: ALBUTEROL SULFATE 2.5 MG/3 ML NPPB SCH ×4 (06:46→19:00)
[2017-03-11] MEDS: SODIUM BICARBONATE 4.2%, 5ML NPPB SCH ×4 (06:46→23:50)
[2017-03-11] MEDS: INSULIN REGULAR 100 UNITS/ML, 3ML VIAL SQ-INSULIN SCH ×4 (07:00→20:48)
[2017-03-11] MEDS: DORZOLAMIDE OPHTH 2%, 10ML EACHEYE SCH ×2 (08:33→20:52)
[2017-03-11] MEDS: TIMOLOL OPHTH 0.5%, 5ML EACHEYE SCH ×2 (08:33→20:52)
[2017-03-11] MEDS: ASPIRIN 325 MG TABLET PO SCH (08:34)
[2017-03-11] MEDS: POTASSIUM CHLORIDE 20 MEQ TAB.ER.PRT PO SCH (08:34)
[2017-03-11] MEDS: DOXYCYCLINE 100MG TABLET PO SCH (08:34)
[2017-03-11] MEDS: GUAIFENESIN ER 600 MG TABLET PO SCH ×2 (08:34→20:58)
[2017-03-11] MEDS: CHOLECALCIFEROL 1,000 UNIT TABLET PO SCH (08:34)
[2017-03-11] MEDS: SENNA/DOCUSATE TABLET PO SCH (08:34)
[2017-03-11] MEDS: CLOPIDOGREL 75 MG TABLET PO SCH (08:35)
[2017-03-11] MEDS: SODIUM CHLORIDE FLUSH 10ML SYR IVF SCH ×2 (08:35→20:53)
[2017-03-11] MEDS: CALCIUM/VITAMIN D3 250-125 TABLET PO SCH ×2 (08:35→20:58)
[2017-03-11] MEDS: FUROSEMIDE 40 MG/4 ML IV SCH ×2 (08:35→17:09)
[2017-03-11] MEDS: FAMOTIDINE 20 MG TABLET PO SCH (08:35)
[2017-03-11] MEDS: BENZONATATE 100 MG CAPSULE PO SCH ×3 (08:36→20:59)
[2017-03-11] MEDS: INSULIN DETEMIR 100 UNITS/ML, PEN SQ-INSULIN SCH (08:49)
[2017-03-11] MEDS: ENOXAPARIN 40 MG/0.4 ML SQ SCH (12:12)
[2017-03-11 14:55] VITALS: BP 149/104
[2017-03-11] MEDS ORDERED: SULFAMETH./TRIMETHOPRIM DS 800MG/160MG TABLET PO SCH (17:00)
[2017-03-11 19:00] VITALS: BP 127/59
[2017-03-11] MEDS: ROPINIROLE 0.5MG TABLET PO SCH (20:57)
[2017-03-11] MEDS: PRAVASTATIN 40 MG TABLET PO SCH (20:58)
[2017-03-11] MEDS: SULFAMETH./TRIMETHOPRIM DS 800MG/160MG TABLET PO SCH (20:59)
[2017-03-11] MEDS: TRAZODONE 50MG TABLET PO SCH (21:43)
[2017-03-12 01:51] VITALS: BP 117/63
[2017-03-12] MEDS: HYDROcodone/APAP 5/325 TABLET PO PRN ×3 (02:00→17:54)
[2017-03-12] MEDS: ALBUMIN HUMAN 25% 50 ML IV SCH ×2 (04:57→21:00)
[2017-03-12] MEDS: LEVOTHYROXINE 125 MCG TABLET PO SCH (04:57)
[2017-03-12] MEDS: HYDROCORTISONE 100 MG INJ. IVPush SCH (05:10)
[2017-03-12 05:36] LABS: BLOOD UREA NITROGEN 37 mg/dL (7-18)
[2017-03-12] MEDS: ALBUTEROL SULFATE 2.5 MG/3 ML NPPB SCH ×4 (07:47→20:00)
[2017-03-12] MEDS: SODIUM BICARBONATE 4.2%, 5ML NPPB SCH ×4 (07:47→20:00)
[2017-03-12 08:29] VITALS: BP 131/66
[2017-03-12] MEDS: INSULIN REGULAR 100 UNITS/ML, 3ML VIAL SQ-INSULIN SCH ×4 (08:30→23:01)
[2017-03-12] MEDS: GUAIFENESIN ER 600 MG TABLET PO SCH ×2 (10:17→22:44)
[2017-03-12] MEDS: CHOLECALCIFEROL 1,000 UNIT TABLET PO SCH (10:17)
[2017-03-12] MEDS: SULFAMETH./TRIMETHOPRIM DS 800MG/160MG TABLET PO SCH (10:17)
[2017-03-12] MEDS: CALCIUM/VITAMIN D3 250-125 TABLET PO SCH ×2 (10:17→22:45)
[2017-03-12] MEDS: CLOPIDOGREL 75 MG TABLET PO SCH (10:17)
[2017-03-12] MEDS: FUROSEMIDE 40 MG/4 ML IV SCH ×2 (10:18→18:11)
[2017-03-12] MEDS: FAMOTIDINE 20 MG TABLET PO SCH (10:18)
[2017-03-12] MEDS: POTASSIUM CHLORIDE 20 MEQ TAB.ER.PRT PO SCH (10:18)
[2017-03-12] MEDS: ASPIRIN 325 MG TABLET PO SCH (10:18)
[2017-03-12] MEDS: BENZONATATE 100 MG CAPSULE PO SCH ×3 (10:19→21:00)
[2017-03-12] MEDS: INSULIN DETEMIR 100 UNITS/ML, PEN SQ-INSULIN SCH (10:19)
[2017-03-12] MEDS: SENNA/DOCUSATE TABLET PO SCH (10:20)
[2017-03-12] MEDS: DORZOLAMIDE OPHTH 2%, 10ML EACHEYE SCH ×2 (10:20→22:44)
[2017-03-12] MEDS: TIMOLOL OPHTH 0.5%, 5ML EACHEYE SCH ×2 (10:20→22:46)
[2017-03-12] MEDS: SODIUM CHLORIDE FLUSH 10ML SYR IVF SCH ×2 (10:35→22:45)
[2017-03-12] MEDS: ENOXAPARIN 40 MG/0.4 ML SQ SCH (12:24)
[2017-03-12 12:43] VITALS: BP 113/63
[2017-03-12 19:15] VITALS: BP 97/53
[2017-03-12] MEDS: ROPINIROLE 0.5MG TABLET PO SCH (22:44)
[2017-03-12] MEDS: PRAVASTATIN 40 MG TABLET PO SCH (22:44)
[2017-03-12] MEDS: TRAZODONE 50MG TABLET PO SCH (22:45)
[2017-03-13 04:52] VITALS: BP 113/58
[2017-03-13 05:45] LABS: BLOOD UREA NITROGEN 35 mg/dL (7-18)
[2017-03-13] MEDS: LEVOTHYROXINE 125 MCG TABLET PO SCH (05:57)
[2017-03-13] MEDS: HYDROcodone/APAP 5/325 TABLET PO PRN ×4 (06:52→18:13)
[2017-03-13] MEDS: SODIUM BICARBONATE 4.2%, 5ML NPPB SCH ×4 (07:20→20:35)
[2017-03-13] MEDS: ALBUTEROL SULFATE 2.5 MG/3 ML NPPB SCH ×4 (07:20→20:35)
[2017-03-13 08:23] VITALS: BP 121/67
[2017-03-13] MEDS: SENNA/DOCUSATE TABLET PO SCH (09:00)
[2017-03-13] MEDS: INSULIN REGULAR 100 UNITS/ML, 3ML VIAL SQ-INSULIN SCH ×4 (10:25→21:07)
[2017-03-13] MEDS: INSULIN DETEMIR 100 UNITS/ML, PEN SQ-INSULIN SCH (10:25)
[2017-03-13] MEDS: ALBUMIN HUMAN 25% 50 ML IV SCH ×2 (10:26→21:06)
[2017-03-13] MEDS: TIMOLOL OPHTH 0.5%, 5ML EACHEYE SCH ×2 (10:27→21:06)
[2017-03-13] MEDS: POTASSIUM CHLORIDE 20 MEQ TAB.ER.PRT PO SCH (10:27)
[2017-03-13] MEDS: FUROSEMIDE 40 MG/4 ML IV SCH ×2 (10:27→17:06)
[2017-03-13] MEDS: GUAIFENESIN ER 600 MG TABLET PO SCH ×2 (10:28→21:09)
[2017-03-13] MEDS: CHOLECALCIFEROL 1,000 UNIT TABLET PO SCH (10:28)
[2017-03-13] MEDS: ASPIRIN 325 MG TABLET PO SCH (10:28)
[2017-03-13] MEDS: CALCIUM/VITAMIN D3 250-125 TABLET PO SCH ×2 (10:28→21:09)
[2017-03-13] MEDS: FAMOTIDINE 20 MG TABLET PO SCH (10:28)
[2017-03-13] MEDS: CLOPIDOGREL 75 MG TABLET PO SCH (10:28)
[2017-03-13] MEDS: DORZOLAMIDE OPHTH 2%, 10ML EACHEYE SCH ×2 (10:32→21:06)
[2017-03-13] MEDS: SODIUM CHLORIDE FLUSH 10ML SYR IVF SCH ×2 (10:39→21:09)
[2017-03-13] MEDS: BENZONATATE 100 MG CAPSULE PO SCH ×3 (10:40→21:00)
[2017-03-13] MEDS: PIPERACILLIN/TAZO 2.25 GM in SODIUM CHLORIDE 0.9% 50 ML IV SCH ×3 (12:05→23:03)
[2017-03-13] MEDS: ENOXAPARIN 40 MG/0.4 ML SQ SCH (12:05)
[2017-03-13 13:16] LABS: RAPID INFLUENZA A Negative (Negative); RAPID INFLUENZA B Negative (Negative)
[2017-03-13 13:24] VITALS: BP 120/59
[2017-03-13 19:33] VITALS: BP 130/72
[2017-03-13] MEDS: ROPINIROLE 0.5MG TABLET PO SCH (21:08)
[2017-03-13] MEDS: DOXYCYCLINE 100MG TABLET PO SCH (21:09)
[2017-03-13] MEDS: PRAVASTATIN 40 MG TABLET PO SCH (21:09)
[2017-03-13] MEDS: TRAZODONE 50MG TABLET PO SCH (21:13)
[2017-03-14 02:02] VITALS: BP 134/74
[2017-03-14] MEDS: PIPERACILLIN/TAZO 2.25 GM in SODIUM CHLORIDE 0.9% 50 ML IV SCH ×4 (05:35→23:11)
[2017-03-14] MEDS: LEVOTHYROXINE 125 MCG TABLET PO SCH (05:35)
[2017-03-14] MEDS: ALBUTEROL SULFATE 2.5 MG/3 ML NPPB SCH ×3 (06:53→19:06)
[2017-03-14] MEDS: SODIUM BICARBONATE 4.2%, 5ML NPPB SCH (07:00)
[2017-03-14 08:08] VITALS: BP 141/71
[2017-03-14] MEDS: SENNA/DOCUSATE TABLET PO SCH (09:00)
[2017-03-14] MEDS: INSULIN REGULAR 100 UNITS/ML, 3ML VIAL SQ-INSULIN SCH ×4 (09:32→20:38)
[2017-03-14] MEDS: INSULIN DETEMIR 100 UNITS/ML, PEN SQ-INSULIN SCH (09:33)
[2017-03-14] MEDS: FUROSEMIDE 40 MG/4 ML IV SCH ×2 (09:34→17:15)
[2017-03-14] MEDS: POTASSIUM CHLORIDE 20 MEQ TAB.ER.PRT PO SCH (09:35)
[2017-03-14] MEDS: GUAIFENESIN ER 600 MG TABLET PO SCH ×2 (09:35→20:33)
[2017-03-14] MEDS: CHOLECALCIFEROL 1,000 UNIT TABLET PO SCH (09:35)
[2017-03-14] MEDS: ASPIRIN 325 MG TABLET PO SCH (09:35)
[2017-03-14] MEDS: CALCIUM/VITAMIN D3 250-125 TABLET PO SCH ×2 (09:35→20:34)
[2017-03-14] MEDS: FAMOTIDINE 20 MG TABLET PO SCH (09:36)
[2017-03-14] MEDS: CLOPIDOGREL 75 MG TABLET PO SCH (09:36)
[2017-03-14] MEDS: DOXYCYCLINE 100MG TABLET PO SCH ×2 (09:36→20:34)
[2017-03-14] MEDS: BENZONATATE 100 MG CAPSULE PO SCH ×3 (09:37→20:34)
[2017-03-14] MEDS: SODIUM CHLORIDE FLUSH 10ML SYR IVF SCH ×2 (09:38→20:35)
[2017-03-14] MEDS: DORZOLAMIDE OPHTH 2%, 10ML EACHEYE SCH ×2 (09:38→20:32)
[2017-03-14] MEDS: TIMOLOL OPHTH 0.5%, 5ML EACHEYE SCH ×2 (09:38→20:32)
[2017-03-14] MEDS: HYDROcodone/APAP 5/325 TABLET PO PRN ×2 (11:13→21:14)
[2017-03-14] MEDS: ENOXAPARIN 40 MG/0.4 ML SQ SCH (13:05)
[2017-03-14 14:13] VITALS: BP 144/71
[2017-03-14 18:57] VITALS: BP 127/59
[2017-03-14] MEDS: ROPINIROLE 0.5MG TABLET PO SCH (20:33)
[2017-03-14] MEDS: PRAVASTATIN 40 MG TABLET PO SCH (20:33)
[2017-03-14] MEDS: TRAZODONE 50MG TABLET PO SCH (21:14)
[2017-03-15 02:54] VITALS: BP 134/79
[2017-03-15] MEDS: LEVOTHYROXINE 125 MCG TABLET PO SCH (04:57)
[2017-03-15] MEDS: PIPERACILLIN/TAZO 2.25 GM in SODIUM CHLORIDE 0.9% 50 ML IV SCH ×4 (04:57→22:51)
[2017-03-15 06:02] LABS: BLOOD UREA NITROGEN 37 mg/dL (7-18); C-REACTIVE PROTEIN, QUANT 0.12 mg/dL (0.02-0.49)
[2017-03-15 06:05] LABS: ASPARTATE AMINO TRANSFERASE 6 U/L (15-37)
[2017-03-15 06:51] VITALS: BP 129/58
[2017-03-15] MEDS: ALBUTEROL SULFATE 2.5 MG/3 ML NPPB SCH ×2 (07:52→20:54)
[2017-03-15] MEDS: INSULIN REGULAR 100 UNITS/ML, 3ML VIAL SQ-INSULIN SCH ×4 (08:00→20:26)
[2017-03-15] MEDS: SODIUM CHLORIDE FLUSH 10ML SYR IVF SCH ×2 (09:00→20:24)
[2017-03-15] MEDS: DORZOLAMIDE OPHTH 2%, 10ML EACHEYE SCH ×2 (10:10→20:25)
[2017-03-15] MEDS: POTASSIUM CHLORIDE 20 MEQ TAB.ER.PRT PO SCH (10:10)
[2017-03-15] MEDS: FUROSEMIDE 40 MG/4 ML IV SCH ×2 (10:10→18:03)
[2017-03-15] MEDS: GUAIFENESIN ER 600 MG TABLET PO SCH ×2 (10:11→20:26)
[2017-03-15] MEDS: ASPIRIN 325 MG TABLET PO SCH (10:11)
[2017-03-15] MEDS: TIMOLOL OPHTH 0.5%, 5ML EACHEYE SCH ×2 (10:11→20:25)
[2017-03-15] MEDS: CLOPIDOGREL 75 MG TABLET PO SCH (10:12)
[2017-03-15] MEDS: FAMOTIDINE 20 MG TABLET PO SCH (10:12)
[2017-03-15] MEDS: CALCIUM/VITAMIN D3 250-125 TABLET PO SCH ×2 (10:12→20:25)
[2017-03-15] MEDS: BENZONATATE 100 MG CAPSULE PO SCH ×3 (10:13→20:26)
[2017-03-15] MEDS: DOXYCYCLINE 100MG TABLET PO SCH ×2 (10:13→20:24)
[2017-03-15] MEDS: SENNA/DOCUSATE TABLET PO SCH (10:13)
[2017-03-15] MEDS: CHOLECALCIFEROL 1,000 UNIT TABLET PO SCH (10:14)
[2017-03-15] MEDS: HYDROcodone/APAP 5/325 TABLET PO PRN ×2 (10:31→15:34)
[2017-03-15] MEDS: INSULIN DETEMIR 100 UNITS/ML, PEN SQ-INSULIN SCH (10:31)
[2017-03-15 13:19] VITALS: BP 122/67
[2017-03-15] MEDS: CETIRIZINE 10 MG TABLET PO SCH (13:40)
[2017-03-15] MEDS: FLUTICASONE NASAL SPRAY 16GM NAS SCH ×2 (13:40→20:25)
[2017-03-15] MEDS: ENOXAPARIN 40 MG/0.4 ML SQ SCH (13:42)
[2017-03-15 19:19] VITALS: BP 114/66
[2017-03-15] MEDS: TRAZODONE 50MG TABLET PO SCH (20:25)
[2017-03-15] MEDS: PRAVASTATIN 40 MG TABLET PO SCH (20:26)
[2017-03-15] MEDS: ROPINIROLE 0.5MG TABLET PO SCH (20:27)
[2017-03-16] MEDS: PIPERACILLIN/TAZO 2.25 GM in SODIUM CHLORIDE 0.9% 50 ML IV SCH ×3 (05:31→17:59)
[2017-03-16] MEDS: LEVOTHYROXINE 125 MCG TABLET PO SCH (05:32)
[2017-03-16] MEDS: HYDROcodone/APAP 5/325 TABLET PO PRN ×3 (05:32→12:41)
[2017-03-16 06:20] LABS: BLOOD UREA NITROGEN 41 mg/dL (7-18)
[2017-03-16] MEDS: FUROSEMIDE 40 MG/4 ML IV SCH (07:30)
[2017-03-16 08:04] VITALS: BP 119/68
[2017-03-16] MEDS: ALBUTEROL SULFATE 2.5 MG/3 ML NPPB SCH ×2 (08:20→18:50)
[2017-03-16] MEDS: INSULIN REGULAR 100 UNITS/ML, 3ML VIAL SQ-INSULIN SCH ×4 (09:42→22:12)
[2017-03-16] MEDS: CLOPIDOGREL 75 MG TABLET PO SCH (09:43)
[2017-03-16] MEDS: FAMOTIDINE 20 MG TABLET PO SCH (09:43)
[2017-03-16] MEDS: DOXYCYCLINE 100MG TABLET PO SCH ×2 (09:43→22:06)
[2017-03-16] MEDS: GUAIFENESIN ER 600 MG TABLET PO SCH ×2 (09:43→22:05)
[2017-03-16] MEDS: CALCIUM/VITAMIN D3 250-125 TABLET PO SCH ×2 (09:43→22:06)
[2017-03-16] MEDS: TIMOLOL OPHTH 0.5%, 5ML EACHEYE SCH ×2 (09:44→22:03)
[2017-03-16] MEDS: CETIRIZINE 10 MG TABLET PO SCH (09:44)
[2017-03-16] MEDS: DORZOLAMIDE OPHTH 2%, 10ML EACHEYE SCH ×2 (09:44→22:03)
[2017-03-16] MEDS: FUROSEMIDE 20 MG/2 ML IV SCH (09:44)
[2017-03-16] MEDS: BENZONATATE 100 MG CAPSULE PO SCH ×3 (09:44→22:07)
[2017-03-16] MEDS: CHOLECALCIFEROL 1,000 UNIT TABLET PO SCH (09:44)
[2017-03-16] MEDS: FLUTICASONE NASAL SPRAY 16GM NAS SCH ×2 (09:45→22:04)
[2017-03-16] MEDS: ASPIRIN 325 MG TABLET PO SCH (09:45)
[2017-03-16] MEDS: SENNA/DOCUSATE TABLET PO SCH (09:45)
[2017-03-16] MEDS: SODIUM CHLORIDE FLUSH 10ML SYR IVF SCH ×2 (09:45→22:02)
[2017-03-16] MEDS: INSULIN DETEMIR 100 UNITS/ML, PEN SQ-INSULIN SCH (09:46)
[2017-03-16] MEDS: ENOXAPARIN 40 MG/0.4 ML SQ SCH (12:41)
[2017-03-16 13:06] LABS: CHLAMYDIA PNEUMONIAE IGG 1:32 (Neg:<1:16); CHLAMYDIA PNEUMONIAE IGM <1:10 (Neg:<1:10)
[2017-03-16] MEDS ORDERED: ZINC OXIDE TP ONE (13:30)
[2017-03-16] MEDS: MORPHINE SULFATE 4 MG/ML, 1ML IVPush PRN (15:40)
[2017-03-16 15:57] VITALS: BP 109/62
[2017-03-16 19:36] VITALS: BP 103/54
[2017-03-16] MEDS: PRAVASTATIN 40 MG TABLET PO SCH (22:05)
[2017-03-16] MEDS: TRAZODONE 50MG TABLET PO SCH (22:05)
[2017-03-16] MEDS: ROPINIROLE 0.5MG TABLET PO SCH (22:06)
[2017-03-17] MEDS: PIPERACILLIN/TAZO 2.25 GM in SODIUM CHLORIDE 0.9% 50 ML IV SCH ×4 (00:30→17:59)
[2017-03-17 01:05] VITALS: BP 143/78
[2017-03-17 06:29] VITALS: BP 142/81
[2017-03-17] MEDS: LEVOTHYROXINE 125 MCG TABLET PO SCH (06:40)
[2017-03-17 07:10] LABS: BLOOD UREA NITROGEN 41 mg/dL (7-18)
[2017-03-17] MEDS: INSULIN REGULAR 100 UNITS/ML, 3ML VIAL SQ-INSULIN SCH ×4 (08:17→21:00)
[2017-03-17] MEDS: FLUTICASONE NASAL SPRAY 16GM NAS SCH ×2 (08:18→21:33)
[2017-03-17] MEDS: CETIRIZINE 10 MG TABLET PO SCH (08:19)
[2017-03-17] MEDS: INSULIN DETEMIR 100 UNITS/ML, PEN SQ-INSULIN SCH (08:19)
[2017-03-17] MEDS: HYDROcodone/APAP 5/325 TABLET PO PRN (08:19)
[2017-03-17] MEDS: FAMOTIDINE 20 MG TABLET PO SCH (08:20)
[2017-03-17] MEDS: FUROSEMIDE 20 MG/2 ML IV SCH (08:20)
[2017-03-17] MEDS: CHOLECALCIFEROL 1,000 UNIT TABLET PO SCH (08:20)
[2017-03-17] MEDS: DOXYCYCLINE 100MG TABLET PO SCH ×2 (08:20→21:37)
[2017-03-17] MEDS: TIMOLOL OPHTH 0.5%, 5ML EACHEYE SCH ×2 (08:20→21:36)
[2017-03-17] MEDS: DORZOLAMIDE OPHTH 2%, 10ML EACHEYE SCH ×2 (08:20→21:00)
[2017-03-17] MEDS: CALCIUM/VITAMIN D3 250-125 TABLET PO SCH ×2 (08:20→21:38)
[2017-03-17] MEDS: ASPIRIN 325 MG TABLET PO SCH (08:20)
[2017-03-17] MEDS: CLOPIDOGREL 75 MG TABLET PO SCH (08:20)
[2017-03-17] MEDS: GUAIFENESIN ER 600 MG TABLET PO SCH ×2 (08:21→22:49)
[2017-03-17] MEDS: BENZONATATE 100 MG CAPSULE PO SCH ×3 (08:21→21:00)
[2017-03-17] MEDS: SENNA/DOCUSATE TABLET PO SCH (08:21)
[2017-03-17] MEDS: SODIUM CHLORIDE FLUSH 10ML SYR IVF SCH ×2 (08:22→21:39)
[2017-03-17] MEDS: ENOXAPARIN 40 MG/0.4 ML SQ SCH (11:19)
[2017-03-17] MEDS: ALBUTEROL SULFATE 2.5 MG/3 ML NPPB SCH (11:20)
[2017-03-17] MEDS: LORazepam 2 MG/ML, 1ML IVPush PRN (12:30)
[2017-03-17 12:37] VITALS: BP 112/57
[2017-03-17] MEDS: MORPHINE SULFATE 4 MG/ML, 1ML IVPush PRN (16:01)
[2017-03-17] MEDS: GUAIFENESIN/DM 200-20MG, 10ML UDC PO PRN (17:09)
[2017-03-17 20:00] VITALS: BP 99/50
[2017-03-17 20:06] LABS: ADENOVIRUS PCR Negative (Negative); INFLUENZA A PCR Negative (Negative); INFLUENZA B PCR Negative (Negative); METAPNEUMOVIRUS PCR Negative (Negative); PARAINFLUENZA 1 PCR Negative (Negative); PARAINFLUENZA 2 PCR Negative (Negative); PARAINFLUENZA 3 PCR Negative (Negative); RESP SYNCYTIAL VIRUS A PCR Negative (Negative); RESP SYNCYTIAL VIRUS B PCR Negative (Negative); RHINOVIRUS PCR Negative (Negative)
[2017-03-17] MEDS ORDERED: ALBUTEROL SULFATE 2.5 MG/3 ML NPPB SCH (21:00)
[2017-03-17] MEDS: ROPINIROLE 0.5MG TABLET PO SCH (21:37)
[2017-03-17] MEDS: PRAVASTATIN 40 MG TABLET PO SCH (21:38)
[2017-03-17] MEDS: TRAZODONE 50MG TABLET PO SCH (22:49)
[2017-03-18] MEDS: PIPERACILLIN/TAZO 2.25 GM in SODIUM CHLORIDE 0.9% 50 ML IV SCH ×4 (00:18→18:40)
[2017-03-18 01:33] VITALS: BP 130/59
[2017-03-18] MEDS ORDERED: ALBUTEROL SULFATE 2.5 MG/3 ML NPPB PRN (06:00)
[2017-03-18] MEDS: LEVOTHYROXINE 125 MCG TABLET PO SCH (06:04)
[2017-03-18 06:31] LABS: BLOOD UREA NITROGEN 41 mg/dL (7-18)
[2017-03-18] MEDS: INSULIN REGULAR 100 UNITS/ML, 3ML VIAL SQ-INSULIN SCH ×4 (07:54→21:00)
[2017-03-18 07:55] VITALS: BP 124/60
[2017-03-18] MEDS: BENZONATATE 100 MG CAPSULE PO SCH ×3 (09:00→21:00)
[2017-03-18] MEDS: FUROSEMIDE 20 MG/2 ML IV SCH (09:00)
[2017-03-18] MEDS: DOXYCYCLINE 100MG TABLET PO SCH (10:04)
[2017-03-18] MEDS: TIMOLOL OPHTH 0.5%, 5ML EACHEYE SCH ×2 (10:04→21:21)
[2017-03-18] MEDS: FLUTICASONE NASAL SPRAY 16GM NAS SCH ×2 (10:04→21:19)
[2017-03-18] MEDS: DORZOLAMIDE OPHTH 2%, 10ML EACHEYE SCH ×2 (10:04→21:00)
[2017-03-18] MEDS: GUAIFENESIN ER 600 MG TABLET PO SCH ×2 (10:05→21:24)
[2017-03-18] MEDS: CALCIUM/VITAMIN D3 250-125 TABLET PO SCH ×2 (10:05→21:24)
[2017-03-18] MEDS: FAMOTIDINE 20 MG TABLET PO SCH (10:05)
[2017-03-18] MEDS: ASPIRIN 325 MG TABLET PO SCH (10:05)
[2017-03-18] MEDS: CHOLECALCIFEROL 1,000 UNIT TABLET PO SCH (10:05)
[2017-03-18] MEDS: CLOPIDOGREL 75 MG TABLET PO SCH (10:05)
[2017-03-18] MEDS: SODIUM CHLORIDE FLUSH 10ML SYR IVF SCH ×2 (10:06→21:19)
[2017-03-18] MEDS: INSULIN DETEMIR 100 UNITS/ML, PEN SQ-INSULIN SCH (10:08)
[2017-03-18] MEDS: SENNA/DOCUSATE TABLET PO SCH (10:09)
[2017-03-18] MEDS: CETIRIZINE 10 MG TABLET PO SCH (12:17)
[2017-03-18 12:49] VITALS: BP 118/57
[2017-03-18] MEDS: ENOXAPARIN 40 MG/0.4 ML SQ SCH (16:21)
[2017-03-18 19:50] VITALS: BP 117/65
[2017-03-18] MEDS: TRAZODONE 50MG TABLET PO SCH (21:23)
[2017-03-18] MEDS: ROPINIROLE 0.5MG TABLET PO SCH (21:24)
[2017-03-18] MEDS: PRAVASTATIN 40 MG TABLET PO SCH (21:24)
[2017-03-19] MEDS: PIPERACILLIN/TAZO 2.25 GM in SODIUM CHLORIDE 0.9% 50 ML IV SCH ×3 (00:26→11:43)
[2017-03-19 01:06] LABS: BLOOD UREA NITROGEN 37 mg/dL (7-18)
[2017-03-19 03:00] VITALS: BP 130/68
[2017-03-19] MEDS: LEVOTHYROXINE 125 MCG TABLET PO SCH (06:08)
[2017-03-19] MEDS: INSULIN REGULAR 100 UNITS/ML, 3ML VIAL SQ-INSULIN SCH ×4 (07:00→21:25)
[2017-03-19 07:45] VITALS: BP 140/66
[2017-03-19] MEDS: ASPIRIN 325 MG TABLET PO SCH (08:25)
[2017-03-19] MEDS: GUAIFENESIN ER 600 MG TABLET PO SCH ×2 (08:26→21:22)
[2017-03-19] MEDS: FUROSEMIDE 20 MG TABLET PO SCH (08:26)
[2017-03-19] MEDS: FAMOTIDINE 20 MG TABLET PO SCH (08:27)
[2017-03-19] MEDS: CLOPIDOGREL 75 MG TABLET PO SCH (08:29)
[2017-03-19] MEDS: SENNA/DOCUSATE TABLET PO SCH (08:30)
[2017-03-19] MEDS: CHOLECALCIFEROL 1,000 UNIT TABLET PO SCH (08:31)
[2017-03-19] MEDS: BENZONATATE 100 MG CAPSULE PO SCH ×3 (08:32→21:22)
[2017-03-19] MEDS: CETIRIZINE 10 MG TABLET PO SCH (08:33)
[2017-03-19] MEDS: CALCIUM/VITAMIN D3 250-125 TABLET PO SCH ×2 (08:33→21:22)
[2017-03-19] MEDS: DORZOLAMIDE OPHTH 2%, 10ML EACHEYE SCH ×2 (08:37→21:00)
[2017-03-19] MEDS: TIMOLOL OPHTH 0.5%, 5ML EACHEYE SCH ×2 (08:38→21:00)
[2017-03-19] MEDS: FLUTICASONE NASAL SPRAY 16GM NAS SCH ×2 (08:41→21:23)
[2017-03-19] MEDS: INSULIN DETEMIR 100 UNITS/ML, PEN SQ-INSULIN SCH (09:04)
[2017-03-19] MEDS: SODIUM CHLORIDE FLUSH 10ML SYR IVF SCH ×2 (09:06→21:24)
[2017-03-19] MEDS: HYDROcodone/APAP 5/325 TABLET PO PRN ×2 (11:46→21:45)
[2017-03-19] MEDS: ENOXAPARIN 40 MG/0.4 ML SQ SCH (11:46)
[2017-03-19 14:26] VITALS: BP 120/54
[2017-03-19] MEDS ORDERED: PIPERACILLIN/TAZO 3.375 GM in SODIUM CHLORIDE 0.9% 50 ML IV SCH (17:00)
[2017-03-19 18:57] VITALS: BP 110/58
[2017-03-19] MEDS: TRAZODONE 50MG TABLET PO SCH (21:21)
[2017-03-19] MEDS: ROPINIROLE 0.5MG TABLET PO SCH (21:22)
[2017-03-19] MEDS: PRAVASTATIN 40 MG TABLET PO SCH (21:22)
[2017-03-19] MEDS: PIPERACILLIN/TAZO 3.375 GM in SODIUM CHLORIDE 0.9% 100 ML IV SCH (23:06)
[2017-03-20 01:42] VITALS: BP 141/85
[2017-03-20] MEDS: PIPERACILLIN/TAZO 3.375 GM in SODIUM CHLORIDE 0.9% 100 ML IV SCH ×2 (05:00→12:00)
[2017-03-20] MEDS: LEVOTHYROXINE 125 MCG TABLET PO SCH (05:39)
[2017-03-20] MEDS: INSULIN REGULAR 100 UNITS/ML, 3ML VIAL SQ-INSULIN SCH ×2 (07:00→11:59)
[2017-03-20 07:27] VITALS: BP 139/67
[2017-03-20] MEDS ORDERED: BENZ200C40 PO (07:37)
[2017-03-20] MEDS: DORZOLAMIDE OPHTH 2%, 10ML EACHEYE SCH (07:37)
[2017-03-20] MEDS: TIMOLOL OPHTH 0.5%, 5ML EACHEYE SCH (07:37)
[2017-03-20] MEDS: GUAIFENESIN ER 600 MG TABLET PO SCH (07:38)
[2017-03-20] MEDS: SODIUM CHLORIDE FLUSH 10ML SYR IVF SCH (07:38)
[2017-03-20] MEDS: FLUTICASONE NASAL SPRAY 16GM NAS SCH (07:38)
[2017-03-20] MEDS: ASPIRIN 325 MG TABLET PO SCH (07:38)
[2017-03-20] MEDS: FAMOTIDINE 20 MG TABLET PO SCH (07:39)
[2017-03-20] MEDS: FUROSEMIDE 20 MG TABLET PO SCH (07:39)
[2017-03-20] MEDS: CALCIUM/VITAMIN D3 250-125 TABLET PO SCH (07:40)
[2017-03-20] MEDS: CLOPIDOGREL 75 MG TABLET PO SCH (07:40)
[2017-03-20] MEDS: SENNA/DOCUSATE TABLET PO SCH (07:41)
[2017-03-20] MEDS: BENZONATATE 100 MG CAPSULE PO SCH (07:42)
[2017-03-20] MEDS: CHOLECALCIFEROL 1,000 UNIT TABLET PO SCH (07:42)
[2017-03-20] MEDS: CETIRIZINE 10 MG TABLET PO SCH (07:43)
[2017-03-20] MEDS: INSULIN DETEMIR 100 UNITS/ML, PEN SQ-INSULIN SCH (07:44)
[2017-03-20] MEDS ORDERED: CETI10TA18 PO (07:55)
[2017-03-20] MEDS ORDERED: CALC1TAB69 PO (07:55)
[2017-03-20] MEDS ORDERED: CLOP75TA22 PO (07:57)
[2017-03-20] MEDS ORDERED: ENOX40SY4 SQ (08:02)
[2017-03-20] MEDS ORDERED: FLUT16SP NS (08:04)
[2017-03-20] MEDS ORDERED: FURO-93 PO (08:05)
[2017-03-20] MEDS ORDERED: GUAI600T53 PO (08:06)
[2017-03-20] MEDS ORDERED: INSU100V5 SQ-INSULIN (08:08)
[2017-03-20] MEDS ORDERED: SENN1TAB5 PO (08:09)
[2017-03-20] MEDS ORDERED: TRAZ50TA18 PO (08:11)
[2017-03-20] MEDS ORDERED: ALPR0.257 PO (08:15)
[2017-03-20] MEDS ORDERED: DEXT30SU5 PO (08:21)
[2017-03-20] MEDS ORDERED: GUAI5LIQ3 PO (08:26)
[2017-03-20] MEDS ORDERED: HYDR-3138 PO (08:27)
[2017-03-20] MEDS ORDERED: PIPE3.375 IVPB (10:31)
[2017-03-20] MEDS: ENOXAPARIN 40 MG/0.4 ML SQ SCH (11:59)
[2017-03-20] MEDS ORDERED: PIPERACILLIN/TAZO 3.375 GM in SODIUM CHLORIDE 0.9% 50 ML IV SCH ×2 (13:13→18:00)
== END 2017-03-20 13:51 | DRG 252 ==
LOC: ED 16:37 → EDIP 16:38 → ED 16:40 → 3NE 18:45 → 5SO 02-26 11:28 → 3NE 03-17 17:50
PROVIDERS: ADMIT Internal Medicine
PROC: 02HV33Z Insertion of Infusion Device into Superior Vena Cava, Percutaneous Approach (ICD-10-PCS; 2017-02-23)
PROC: B5181ZA Fluoroscopy of Superior Vena Cava using Low Osmolar Contrast, Guidance (ICD-10-PCS; 2017-02-23)
PROC: B548ZZA Ultrasonography of Superior Vena Cava, Guidance (ICD-10-PCS; 2017-02-23)
PROC: B41G1ZZ Fluoroscopy of Left Lower Extremity Arteries using Low Osmolar Contrast (ICD-10-PCS; 2017-03-02)
PROC: 047L3DZ Dilation of Left Femoral Artery with Intraluminal Device, Percutaneous Approach (ICD-10-PCS; 2017-03-02)
PROC: 04UL0KZ Supplement Left Femoral Artery with Nonautologous Tissue Substitute, Open Approach (ICD-10-PCS; 2017-03-02)
PROC: 047N3ZZ Dilation of Left Popliteal Artery, Percutaneous Approach (ICD-10-PCS; 2017-03-02)
PROC: 04CL0ZZ Extirpation of Matter from Left Femoral Artery, Open Approach (ICD-10-PCS; principal; 2017-03-02 15:00)
DX: T82.868A Thrombosis due to vascular prosthetic devices, implants and grafts, initial encounter (principal); J96.21 Acute and chronic respiratory failure with hypoxia; N17.0 Acute kidney failure with tubular necrosis; J18.9 Pneumonia, unspecified organism; I50.33 Acute on chronic diastolic (congestive) heart failure; G93.41 Metabolic encephalopathy; L03.116 Cellulitis of left lower limb; E27.40 Unspecified adrenocortical insufficiency; I13.0 Hypertensive heart and chronic kidney disease with heart failure and stage 1 through stage 4 chronic kidney disease, or unspecified chronic kidney disease; J44.0 Chronic obstructive pulmonary disease with (acute) lower respiratory infection; J44.1 Chronic obstructive pulmonary disease with (acute) exacerbation; I74.3 Embolism and thrombosis of arteries of the lower extremities; D76.3 Other histiocytosis syndromes; E11.51 Type 2 diabetes mellitus with diabetic peripheral angiopathy without gangrene; E03.9 Hypothyroidism, unspecified; E11.622 Type 2 diabetes mellitus with other skin ulcer; I87.2 Venous insufficiency (chronic) (peripheral); E11.22 Type 2 diabetes mellitus with diabetic chronic kidney disease; E11.621 Type 2 diabetes mellitus with foot ulcer; E78.5 Hyperlipidemia, unspecified; E87.5 Hyperkalemia; G25.81 Restless legs syndrome; I95.81 Postprocedural hypotension; D69.6 Thrombocytopenia, unspecified; H40.9 Unspecified glaucoma; Z96.651 Presence of right artificial knee joint; I25.10 Atherosclerotic heart disease of native coronary artery without angina pectoris; I35.8 Other nonrheumatic aortic valve disorders; I50.9 Heart failure, unspecified; I77.819 Aortic ectasia, unspecified site; I83.029 Varicose veins of left lower extremity with ulcer of unspecified site; I87.8 Other specified disorders of veins; G89.29 Other chronic pain; M54.9 Dorsalgia, unspecified; D63.8 Anemia in other chronic diseases classified elsewhere; L97.529 Non-pressure chronic ulcer of other part of left foot with unspecified severity; N18.3 Chronic kidney disease, stage 3 (moderate); B95.2 Enterococcus as the cause of diseases classified elsewhere; N50.89 Other specified disorders of the male genital organs; Z66 Do not resuscitate; Y83.8 Other surgical procedures as the cause of abnormal reaction of the patient, or of later complication, without mention of misadventure at the time of the procedure; Z79.02 Long term (current) use of antithrombotics/antiplatelets; Z22.322 Carrier or suspected carrier of Methicillin resistant Staphylococcus aureus; Z79.4 Long term (current) use of insulin; I25.2 Old myocardial infarction; Z79.82 Long term (current) use of aspirin; Z85.118 Personal history of other malignant neoplasm of bronchus and lung; Z85.46 Personal history of malignant neoplasm of prostate; Z86.14 Personal history of Methicillin resistant Staphylococcus aureus infection; Z87.891 Personal history of nicotine dependence; Z90.2 Acquired absence of lung [part of]; Z90.79 Acquired absence of other genital organ(s); Z90.49 Acquired absence of other specified parts of digestive tract; Z79.899 Other long term (current) drug therapy; Z88.8 Allergy status to other drugs, medicaments and biological substances; Y92.89 Other specified places as the place of occurrence of the external cause
CPT/HCPCS: 36415; 36569; 71010; 71020; 71275; 74176; 75635; 75710; 76870; 76937; 77001; 80048; 80053; 81001; 81003; 82533; 82542; 82550; 82947; 82962; 83605; 83880; 84145; 84443; 84484; 85014; 85018; 85025; 85049; 85379; 85384; 85610; 85651; 85730; 86022; 86140; 86631; 86632; 86635; 86738; 86850; 86900; 86923; 87040; 87070; 87077; 87081; 87186; 87205; 87400; 87633; 93005; 93306; 93922; 93925; 93970; 94640; C1729; J0690; J0712; J1644; J1650; J1815; J1940; J2405; J2543; J2704; J2720; J2997; J3010; J3370; J3490; J7120; J7613; P9047; Q9966; Q9967; 29580-GP; C1751; C1768; C1876; J0330; J1720; J2060; J2370; J7030; J7040; J7050; J7512

== ENCOUNTER 2017-05-10 11:08 | Inpatient (IN) | payer OTHER, MEDICAID ==
[~2017-05-10] VITALS: Ht 165.1 cm; Wt 81.2 kg
[~2017-05-10 11:08] MED LIST changes: +ALPR0.257 PO; +BENZ200C40 PO; +CALC1TAB69 PO; +CETI10TA18 PO; +CLOP75TA22 PO; +CLOT15CR6 TP; +DEXT30SU5 PO; +FLUT16SP NS; +FURO-93 PO; +GUAI5LIQ3 PO; +GUAI600T53 PO; +INSU100V5 SQ-INSULIN; +LISI1TAB7 PO; +MUPI1OIN6 TP; +PIPE3.375 IVPB; +ROPI0.5T2 PO; +SENN1TAB5 PO; +TRAZ50TA18 PO
[2017-05-10] MEDS ORDERED: SODIUM CHLORIDE 0.9% 1,000ML IVBOLUS ONE (12:30)
[2017-05-10] MEDS ORDERED: CEFTAROLINE 600 MG in SODIUM CHLORIDE 0.9% 100 ML IV ONE (12:30)
[2017-05-10] MEDS ORDERED: SODIUM CHLORIDE FLUSH 10ML SYR IVF ONE (12:30)
[2017-05-10] MEDS ORDERED: ONDANSETRON 2MG/ML, 2ML IVPush ONE (12:30)
[2017-05-10] MEDS ORDERED: MORPHINE SULFATE 4 MG/ML, 1ML IVPush PRN (12:30)
[2017-05-10] MEDS ORDERED: ONDANSETRON 2MG/ML, 2ML ONE (12:34)
[2017-05-10] MEDS ORDERED: MORPHINE SULFATE 4 MG/ML, 1ML ONE (12:34)
[2017-05-10 12:50] LABS: ASPARTATE AMINO TRANSFERASE 18 U/L (15-37); BLOOD UREA NITROGEN 32 mg/dL (7-18)
[2017-05-10] MEDS ORDERED: BISACODYL 10 MG SUPP PR PRN (15:00)
[2017-05-10] MEDS ORDERED: ENALAPRILAT 1.25 MG/ML, 2ML IVPush PRN (15:00)
[2017-05-10] MEDS ORDERED: POLYETHYLENE GLYCOL 17 GM PACKET PO PRN (15:00)
[2017-05-10] MEDS ORDERED: ONDANSETRON 2MG/ML, 2ML IVPush PRN (15:00)
[2017-05-10] MEDS ORDERED: hydrALAzine 20 MG/ML, 1ML IVPush PRN (15:00)
[2017-05-10] MEDS ORDERED: ACETAMINOPHEN 325 MG TABLET PO PRN (15:00)
[2017-05-10] MEDS ORDERED: OXYcodone IR 5MG TABLET PO PRN (15:00)
[2017-05-10] MEDS: INSULIN ASPART 100 UNITS/ML, PEN SQ-INSULIN SCH ×2 (16:00→20:49)
[2017-05-10 16:13] VITALS: BP 118/64
[2017-05-10] MEDS ORDERED: PHARMACOKINETIC MONITORING MC PRN (17:00)
[2017-05-10] MEDS ORDERED: VANCOMYCIN PER PHARMACY MC PRN (17:00)
[2017-05-10] MEDS: HEPARIN 5,000 UNITS/ML, 1ML SQ SCH (17:23)
[2017-05-10] MEDS: OxyconTIN ER 10 MG TAB.ER PO SCH (17:23)
[2017-05-10] MEDS: PIPERACILLIN/TAZO(ZOSYN) 2.25 GM in NS 50 ML IVPB SCH (19:39)
[2017-05-10] MEDS: ROPINIROLE 0.5MG TABLET PO SCH (19:50)
[2017-05-10] MEDS: TEMPLATE NON-FORMULARY MED. (Dorzolamide Hcl/Timolol Maleat (Dorzolamide-Timolol Eye Drops EACHEYE SCH (20:49)
[2017-05-10] MEDS: FAMOTIDINE 20 MG TABLET PO SCH (20:49)
[2017-05-10] MEDS: TRAZODONE 50MG TABLET PO SCH (20:49)
[2017-05-10] MEDS: VANCOMYCIN 1,400 MG in SODIUM CHLORIDE 0.9% 250 ML IV SCH (20:49)
[2017-05-10] MEDS: PRAVASTATIN 40 MG TABLET PO SCH (20:49)
[2017-05-10 21:40] VITALS: BP 114/60
[2017-05-10] MEDS ORDERED: CEFTAROLINE 600 MG in SODIUM CHLORIDE 0.9% 100 ML IV SCH (23:00)
[2017-05-11 01:22] VITALS: BP 103/53
[2017-05-11] MEDS: HEPARIN 5,000 UNITS/ML, 1ML SQ SCH ×3 (01:27→17:12)
[2017-05-11] MEDS: PIPERACILLIN/TAZO(ZOSYN) 2.25 GM in NS 50 ML IVPB SCH ×4 (01:27→20:15)
[2017-05-11] MEDS: morphine SULFATE 10 MG/ML, 1ML IVPush PRN (02:46)
[2017-05-11] MEDS: OxyconTIN ER 10 MG TAB.ER PO SCH ×2 (05:37→17:12)
[2017-05-11 05:59] LABS: ASPARTATE AMINO TRANSFERASE 17 U/L (15-37); BLOOD UREA NITROGEN 26 mg/dL (7-18)
[2017-05-11] MEDS ORDERED: LEVOTHYROXINE 125 MCG TABLET PO SCH (06:00)
[2017-05-11 06:50] VITALS: BP 100/56
[2017-05-11] MEDS: INSULIN ASPART 100 UNITS/ML, PEN SQ-INSULIN SCH ×4 (07:00→20:16)
[2017-05-11] MEDS: ASPIRIN 325 MG TABLET PO SCH (08:55)
[2017-05-11] MEDS: FAMOTIDINE 20 MG TABLET PO SCH ×2 (08:55→20:15)
[2017-05-11] MEDS: TEMPLATE NON-FORMULARY MED. (Dorzolamide Hcl/Timolol Maleat (Dorzolamide-Timolol Eye Drops EACHEYE SCH ×2 (08:56→20:16)
[2017-05-11] MEDS: SENNA/DOCUSATE TABLET PO SCH (08:56)
[2017-05-11] MEDS: CHOLECALCIFEROL 1,000 UNIT TABLET PO SCH (08:56)
[2017-05-11 12:56] VITALS: BP 103/56
[2017-05-11 18:57] VITALS: BP 119/56
[2017-05-11] MEDS: TRAZODONE 50MG TABLET PO SCH (20:15)
[2017-05-11] MEDS: ROPINIROLE 0.5MG TABLET PO SCH (20:15)
[2017-05-11] MEDS: PRAVASTATIN 40 MG TABLET PO SCH (20:15)
[2017-05-11] MEDS: VANCOMYCIN 1,400 MG in SODIUM CHLORIDE 0.9% 250 ML IV SCH (20:54)
[2017-05-12] MEDS: PIPERACILLIN/TAZO(ZOSYN) 2.25 GM in NS 50 ML IVPB SCH ×4 (01:10→23:20)
[2017-05-12] MEDS: HEPARIN 5,000 UNITS/ML, 1ML SQ SCH ×3 (01:11→17:17)
[2017-05-12 02:09] VITALS: BP 137/63
[2017-05-12] MEDS: LEVOTHYROXINE 125 MCG TABLET PO SCH (04:59)
[2017-05-12] MEDS: OxyconTIN ER 10 MG TAB.ER PO SCH ×2 (04:59→17:12)
[2017-05-12 05:14] LABS: BLOOD UREA NITROGEN 27 mg/dL (7-18)
[2017-05-12] MEDS ORDERED: LEVOTHYROXINE 125 MCG TABLET PO SCH (06:00)
[2017-05-12] MEDS: INSULIN ASPART 100 UNITS/ML, PEN SQ-INSULIN SCH ×4 (07:00→22:19)
[2017-05-12 07:38] VITALS: BP 120/68
[2017-05-12] MEDS: ASPIRIN 325 MG TABLET PO SCH (08:17)
[2017-05-12] MEDS: CHOLECALCIFEROL 1,000 UNIT TABLET PO SCH (08:17)
[2017-05-12] MEDS: FAMOTIDINE 20 MG TABLET PO SCH ×2 (08:18→22:00)
[2017-05-12] MEDS: SENNA/DOCUSATE TABLET PO SCH (08:18)
[2017-05-12] MEDS: TEMPLATE NON-FORMULARY MED. (Dorzolamide Hcl/Timolol Maleat (Dorzolamide-Timolol Eye Drops EACHEYE SCH ×2 (08:22→21:00)
[2017-05-12] MEDS ORDERED: ERGOCALCIFEROL 50,000 UNIT CAPSULE PO SCH (10:30)
[2017-05-12] MEDS: CYANOCOBALOMIN 100MCG TABLET PO SCH (10:46)
[2017-05-12 13:37] VITALS: BP 146/79
[2017-05-12] MEDS: morphine SULFATE 10 MG/ML, 1ML IVPush PRN (15:30)
[2017-05-12 20:00] VITALS: BP 132/68
[2017-05-12] MEDS: VANCOMYCIN 1,400 MG in SODIUM CHLORIDE 0.9% 250 ML IV SCH (21:00)
[2017-05-12] MEDS ORDERED: FUROSEMIDE 40 MG/4 ML IV ONE (21:30)
[2017-05-12] MEDS: PRAVASTATIN 40 MG TABLET PO SCH (22:00)
[2017-05-12] MEDS: ROPINIROLE 0.5MG TABLET PO SCH (22:00)
[2017-05-12] MEDS: TRAZODONE 50MG TABLET PO SCH (22:00)
[2017-05-13] MEDS: HEPARIN 5,000 UNITS/ML, 1ML SQ SCH ×3 (01:14→17:11)
[2017-05-13 04:00] VITALS: BP 130/71
[2017-05-13] MEDS: OxyconTIN ER 10 MG TAB.ER PO SCH ×2 (04:41→17:11)
[2017-05-13] MEDS: PIPERACILLIN/TAZO(ZOSYN) 2.25 GM in NS 50 ML IVPB SCH ×4 (04:41→23:06)
[2017-05-13] MEDS: LEVOTHYROXINE 125 MCG TABLET PO SCH (04:41)
[2017-05-13 04:48] LABS: BLOOD UREA NITROGEN 23 mg/dL (7-18)
[2017-05-13] MEDS: INSULIN ASPART 100 UNITS/ML, PEN SQ-INSULIN SCH ×4 (07:00→20:18)
[2017-05-13 08:31] VITALS: BP 130/75
[2017-05-13] MEDS: TEMPLATE NON-FORMULARY MED. (Dorzolamide Hcl/Timolol Maleat (Dorzolamide-Timolol Eye Drops EACHEYE SCH ×2 (08:31→20:19)
[2017-05-13] MEDS: FUROSEMIDE 20 MG/2 ML IV SCH ×2 (08:33→17:09)
[2017-05-13] MEDS: SENNA/DOCUSATE TABLET PO SCH (08:53)
[2017-05-13] MEDS: CHOLECALCIFEROL 1,000 UNIT TABLET PO SCH (08:53)
[2017-05-13] MEDS: ASPIRIN 325 MG TABLET PO SCH (08:53)
[2017-05-13] MEDS: FAMOTIDINE 20 MG TABLET PO SCH (08:53)
[2017-05-13] MEDS: CYANOCOBALOMIN 100MCG TABLET PO SCH (08:53)
[2017-05-13] MEDS ORDERED: VANCOMYCIN 1,400 MG in SODIUM CHLORIDE 0.9% 250 ML IV SCH (09:00)
[2017-05-13] MEDS: VANCOMYCIN 1,700 MG in SODIUM CHLORIDE 0.9% 250 ML IV SCH (10:47)
[2017-05-13 14:39] VITALS: BP 132/68
[2017-05-13 18:59] VITALS: BP 121/73
[2017-05-13] MEDS: TRAZODONE 50MG TABLET PO SCH (20:07)
[2017-05-13] MEDS: PRAVASTATIN 40 MG TABLET PO SCH (20:07)
[2017-05-13] MEDS: ROPINIROLE 0.5MG TABLET PO SCH (20:07)
[2017-05-14] MEDS: HEPARIN 5,000 UNITS/ML, 1ML SQ SCH ×3 (01:19→17:16)
[2017-05-14] MEDS: HYDROcodone/APAP 5/325 TABLET PO PRN ×2 (01:19→13:41)
[2017-05-14 01:30] VITALS: BP 122/70
[2017-05-14] MEDS ORDERED: ROPINIROLE 0.5MG TABLET PO ONE (02:00)
[2017-05-14] MEDS: PIPERACILLIN/TAZO(ZOSYN) 2.25 GM in NS 50 ML IVPB SCH ×3 (05:00→17:00)
[2017-05-14] MEDS: OxyconTIN ER 10 MG TAB.ER PO SCH ×2 (05:04→17:17)
[2017-05-14] MEDS: LEVOTHYROXINE 125 MCG TABLET PO SCH (05:04)
[2017-05-14] MEDS: INSULIN ASPART 100 UNITS/ML, PEN SQ-INSULIN SCH ×4 (07:00→21:33)
[2017-05-14 08:30] VITALS: BP 131/69
[2017-05-14] MEDS: FUROSEMIDE 20 MG/2 ML IV SCH (09:00)
[2017-05-14] MEDS: TEMPLATE NON-FORMULARY MED. (Dorzolamide Hcl/Timolol Maleat (Dorzolamide-Timolol Eye Drops EACHEYE SCH ×2 (09:00→21:00)
[2017-05-14] MEDS: SENNA/DOCUSATE TABLET PO SCH (09:38)
[2017-05-14] MEDS: CYANOCOBALOMIN 100MCG TABLET PO SCH (09:38)
[2017-05-14] MEDS: CHOLECALCIFEROL 1,000 UNIT TABLET PO SCH (09:38)
[2017-05-14] MEDS: ASPIRIN 325 MG TABLET PO SCH (09:39)
[2017-05-14] MEDS: FAMOTIDINE 20 MG TABLET PO SCH (09:39)
[2017-05-14 14:00] VITALS: BP 122/72
[2017-05-14 19:58] VITALS: BP 140/71
[2017-05-14] MEDS ORDERED: morphine SULFATE ORAL.CONC 20 MG/ML PO ONE (20:30)
[2017-05-14] MEDS: ROPINIROLE 0.5MG TABLET PO SCH (21:27)
[2017-05-14] MEDS: TRAZODONE 50MG TABLET PO SCH (21:27)
[2017-05-14] MEDS: PRAVASTATIN 40 MG TABLET PO SCH (21:27)
[2017-05-15] MEDS: VANCOMYCIN 1,700 MG in SODIUM CHLORIDE 0.9% 250 ML IV SCH (01:01)
[2017-05-15] MEDS ORDERED: ROPINIROLE 0.5MG TABLET PO ONE (01:30)
[2017-05-15] MEDS: HEPARIN 5,000 UNITS/ML, 1ML SQ SCH ×3 (01:38→17:04)
[2017-05-15 02:44] VITALS: BP 134/73
[2017-05-15] MEDS: PIPERACILLIN/TAZO(ZOSYN) 2.25 GM in NS 50 ML IVPB SCH ×4 (03:03→21:22)
[2017-05-15] MEDS: LEVOTHYROXINE 125 MCG TABLET PO SCH (05:11)
[2017-05-15] MEDS: OxyconTIN ER 10 MG TAB.ER PO SCH ×2 (05:11→16:40)
[2017-05-15 05:27] LABS: BLOOD UREA NITROGEN 20 mg/dL (7-18)
[2017-05-15 06:32] VITALS: BP 141/76
[2017-05-15] MEDS: INSULIN ASPART 100 UNITS/ML, PEN SQ-INSULIN SCH ×4 (07:35→21:29)
[2017-05-15] MEDS: CYANOCOBALOMIN 100MCG TABLET PO SCH (10:13)
[2017-05-15] MEDS: CHOLECALCIFEROL 1,000 UNIT TABLET PO SCH (10:14)
[2017-05-15] MEDS: ASPIRIN 325 MG TABLET PO SCH (10:14)
[2017-05-15] MEDS: SENNA/DOCUSATE TABLET PO SCH (10:14)
[2017-05-15] MEDS: FUROSEMIDE 20 MG/2 ML IV SCH (10:14)
[2017-05-15] MEDS: FAMOTIDINE 20 MG TABLET PO SCH (10:15)
[2017-05-15] MEDS: TEMPLATE NON-FORMULARY MED. (Dorzolamide Hcl/Timolol Maleat (Dorzolamide-Timolol Eye Drops EACHEYE SCH ×2 (10:21→21:00)
[2017-05-15 12:55] VITALS: BP 134/60
[2017-05-15 20:02] VITALS: BP 147/85
[2017-05-15] MEDS: TRAZODONE 50MG TABLET PO SCH (21:19)
[2017-05-15] MEDS: PRAVASTATIN 40 MG TABLET PO SCH (21:19)
[2017-05-15] MEDS: ROPINIROLE 0.5MG TABLET PO SCH (21:19)
[2017-05-16] MEDS ORDERED: ROPINIROLE 0.5MG TABLET PO ONE (01:00)
[2017-05-16] MEDS: HEPARIN 5,000 UNITS/ML, 1ML SQ SCH ×2 (01:00→08:52)
[2017-05-16 02:44] VITALS: BP 138/76
[2017-05-16] MEDS: PIPERACILLIN/TAZO(ZOSYN) 2.25 GM in NS 50 ML IVPB SCH ×2 (03:09→08:48)
[2017-05-16 04:41] LABS: BLOOD UREA NITROGEN 19 mg/dL (7-18)
[2017-05-16] MEDS: OxyconTIN ER 10 MG TAB.ER PO SCH (05:27)
[2017-05-16] MEDS: LEVOTHYROXINE 125 MCG TABLET PO SCH (06:29)
[2017-05-16 06:59] VITALS: BP 141/78
[2017-05-16] MEDS: FUROSEMIDE 20 MG/2 ML IV SCH (08:48)
[2017-05-16] MEDS: SENNA/DOCUSATE TABLET PO SCH (08:49)
[2017-05-16] MEDS: FAMOTIDINE 20 MG TABLET PO SCH (08:49)
[2017-05-16] MEDS: ASPIRIN 325 MG TABLET PO SCH (08:49)
[2017-05-16] MEDS: CHOLECALCIFEROL 1,000 UNIT TABLET PO SCH (08:50)
[2017-05-16] MEDS: CYANOCOBALOMIN 100MCG TABLET PO SCH (08:50)
[2017-05-16] MEDS: INSULIN ASPART 100 UNITS/ML, PEN SQ-INSULIN SCH ×2 (09:03→13:20)
[2017-05-16] MEDS ORDERED: TIMOLOL OPHTH 0.5%, 5ML EACHEYE SCH (09:21)
[2017-05-16] MEDS ORDERED: DORZOLAMIDE OPHTH 2%, 10ML EACHEYE SCH (09:21)
[2017-05-16] MEDS: VANCOMYCIN 1,700 MG in SODIUM CHLORIDE 0.9% 250 ML IV SCH (09:57)
[2017-05-16 14:43] VITALS: BP 127/61
[2017-05-16] MEDS ORDERED: AMOX1TAB64 PO (15:04)
[2017-05-16] MEDS ORDERED: MULT-412 PO (15:04)
[2017-05-16] MEDS ORDERED: FURO40TA6 PO (15:04)
[2017-05-16] MEDS ORDERED: SENN1TAB7 PO (15:04)
[2017-05-16] MEDS ORDERED: ERGO500017 PO (15:04)
[2017-05-16] MEDS ORDERED: CYAN100T PO (15:04)
[2017-05-16] MEDS ORDERED: CEFD300C37 PO (15:04)
[2017-05-16] MEDS ORDERED: LACT1CAP24 PO (15:05)
[2017-05-16] MEDS ORDERED: OXYC1TAB9 PO (16:32)
== END 2017-05-16 17:34 | disposition home or self-care (01) | DRG 603 ==
LOC: ED 12:27 → EDIP 13:12 → 4WST 16:18 → 3NW 05-12 10:57
PROVIDERS: ADMIT Hospitalist; ATTEND Hospitalist
DX: L03.116 Cellulitis of left lower limb (principal); E44.0 Moderate protein-calorie malnutrition; Z68.41 Body mass index [BMI] 40.0-44.9, adult; D64.9 Anemia, unspecified; E03.9 Hypothyroidism, unspecified; E11.22 Type 2 diabetes mellitus with diabetic chronic kidney disease; E78.5 Hyperlipidemia, unspecified; I12.9 Hypertensive chronic kidney disease with stage 1 through stage 4 chronic kidney disease, or unspecified chronic kidney disease; I25.10 Atherosclerotic heart disease of native coronary artery without angina pectoris; E11.51 Type 2 diabetes mellitus with diabetic peripheral angiopathy without gangrene; J44.9 Chronic obstructive pulmonary disease, unspecified; N18.3 Chronic kidney disease, stage 3 (moderate); Z85.118 Personal history of other malignant neoplasm of bronchus and lung; Z85.46 Personal history of malignant neoplasm of prostate; Z86.14 Personal history of Methicillin resistant Staphylococcus aureus infection; I25.2 Old myocardial infarction; Z87.891 Personal history of nicotine dependence; Z82.49 Family history of ischemic heart disease and other diseases of the circulatory system; Z83.3 Family history of diabetes mellitus
CPT/HCPCS: 36415; 80048; 80053; 80202; 82306; 82607; 82962; 83036; 83735; 84439; 84443; 85025; 85651; 87040; 87070; 87205; 93005; 96365; 96366; 96375; J0712; J1644; J1815; J1940; J2405; J2543; J3370; J2270; J7030; J7050

== ENCOUNTER 2017-11-08 12:39 | Inpatient (IN) | payer OTHER, MEDICAID ==
[~2017-11-08] VITALS: Ht 167.6 cm; Wt 77.3 kg
[~2017-11-08 12:39] MED LIST changes: +ASPI325T17 PO; -ASPI325T4 PO; -BENZ200C40 PO; +BENZ200C48 PO; +CEFD300C37 PO; +CLIN300C8 PO; -CLIN300C93 PO; +CLOP75TA PO; -CLOP75TA22 PO; +CLOP75TA52 PO; +CLOT15CR6 TD; +CYAN100T PO; -DEXT30SU5 PO; +DEXT30SU8 PO; +ERGO500017 PO; +FURO40TA6 PO; -GUAI600T53 PO; +GUAI600T80 PO; -HYDR-3138 PO; -HYDR-3144 PO; +HYDR-3237 PO; +HYDR-3245 PO; -INSU100V10 SQ; +INSU100V11 SQ; +INSU100V13 SC; +LACT1CAP24 PO; -MAGN400O4 PO; +MAGN400O7 PO; +MULT-412 PO; +OXYC1TAB7 PO; +OXYC1TAB9 PO; +SENN-52 PO; -SENN1TAB5 PO; +SENN1TAB7 PO; +SULF-169 PO; -SULF1TAB3 PO; +TIMO5DRO5 EACHEYE; +TRAZ100T15 PO
[2017-11-08] MEDS ORDERED: CEFAZOLIN PMX 1GM/50ML 50 ML ONE (13:27)
[2017-11-08] MEDS ORDERED: VANCOMYCIN PER PHARMACY MC ONE (13:30)
[2017-11-08] MEDS ORDERED: CEFAZOLIN PMX 1GM/50ML 50 ML IV ONE (13:30)
[2017-11-08] MEDS ORDERED: VANCOMYCIN 1,500 MG in SODIUM CHLORIDE 0.9% 250 ML IV ONE (13:30)
[2017-11-08] MEDS ORDERED: SODIUM CHLORIDE FLUSH 10ML SYR IVF ONE (13:30)
[2017-11-08 13:46] LABS: BASOPHILS # (AUTO) 0.05 x10^3/uL (0-0.1); BASOPHILS % (AUTO) 1 % (0-1); EOSINOPHILS # (AUTO) 0.06 x10^3/uL (0-0.4); EOSINOPHILS % (AUTO) 1 % (1-7); LYMPHOCYTES # (AUTO) 1.02 x10^3/uL (1-3.4); LYMPHOCYTES % (AUTO) 12 % (22-44); MD NO; MEAN CORPUSCULAR HGB CONC 33.2 g/dL (33.2-36.2); MEAN CORPUSCULAR VOLUME 84.4 fL (81-97); MEAN PLATELET VOLUME 7.7 fL (7.4-10.4); MONOCYTES # (AUTO) 0.74 x10^3/uL (0.2-0.8); MONOCYTES % (AUTO) 9 % (2-9); NEUTROPHILS # (AUTO) 6.68 x10^3/uL (1.8-6.8); NEUTROPHILS % (AUTO) 78 % (42-75); PLATELET COUNT 448 x10^3/uL (130-400); RED BLOOD COUNT 3.78 x10^6/uL (4.38-5.82)
[2017-11-08 13:55] LABS: INTERNATIONAL NORMALIZED RATIO 1.03 (0.93-1.1); PROTHROMBIN TIME 10.7 Seconds (9.6-11.5)
[2017-11-08 13:57] LABS: ALANINE AMINOTRANSFERASE 10 U/L (12-78); ALBUMIN 2.3 g/dL (3.4-5.0); ANION GAP 8 mmol/L (5-15); CALCIUM 8.1 mg/dL (8.5-10.1); CHLORIDE 95 mmol/L (98-107)
[2017-11-08 14:00] LABS: ALKALINE PHOSPHATASE 93 U/L (45-117); BILIRUBIN,TOTAL 0.3 mg/dL (0.2-1.0); TOTAL PROTEIN 7.6 g/dL (6.4-8.2)
[2017-11-08] MEDS ORDERED: FURO20TA3 PO (14:51)
[2017-11-08] MEDS ORDERED: POTA10TA6 PO (14:51)
[2017-11-08] MEDS ORDERED: GABA300C10 PO (14:51)
[2017-11-08] MEDS ORDERED: INSU100C5 SQ-INSULIN (14:51)
[2017-11-08] MEDS ORDERED: ACETAMINOPHEN 325 MG TABLET PO PRN (15:30)
[2017-11-08] MEDS ORDERED: VANCOMYCIN PER PHARMACY MC PRN (15:30)
[2017-11-08] MEDS ORDERED: DEXTROSE 50%, 50ML SYRINGE IVPush PRN (15:30)
[2017-11-08] MEDS ORDERED: morphine SULFATE 10 MG/ML, 1ML IVPush PRN (15:30)
[2017-11-08] MEDS ORDERED: PIPERACILLIN/TAZO 2.25 GM in SODIUM CHLORIDE 0.9% 50 ML IV SCH (15:30)
[2017-11-08] MEDS ORDERED: LABETALOL 5MG/ML, 20ML IVPush PRN (15:30)
[2017-11-08] MEDS: HEPARIN 5,000 UNITS/ML, 1ML SQ SCH ×2 (15:30→21:39)
[2017-11-08] MEDS ORDERED: SODIUM CHLORIDE 0.9% 1,000 ML IV ONE (15:30)
[2017-11-08] MEDS ORDERED: DEXTROSE 4 GM TAB.CHEW PO PRN (15:30)
[2017-11-08] MEDS ORDERED: ONDANSETRON 2MG/ML, 2ML IVPush PRN (15:30)
[2017-11-08] MEDS ORDERED: GLUCAGON 1 MG IM PRN (15:30)
[2017-11-08] MEDS ORDERED: PHARMACOKINETIC CONSULTATION MC ONE (17:00)
[2017-11-08] MEDS ORDERED: PHARMACOKINETIC MONITORING MC PRN (17:00)
[2017-11-08] MEDS: PIPERACILLIN/TAZO/PMX 2.25GM 50 ML IVPB SCH (17:51)
[2017-11-08] MEDS: INSULIN DETEMIR 100 UNITS/ML, PEN SQ-INSULIN SCH (17:55)
[2017-11-08] MEDS: INSULIN ASPART 100 UNITS/ML, PEN SQ-INSULIN SCH ×2 (17:55→21:59)
[2017-11-08] MEDS: ROPINIROLE 0.5MG TABLET PO SCH ×2 (17:56→21:39)
[2017-11-08] MEDS: GABAPENTIN 300 MG CAPSULE PO SCH ×2 (17:56→21:38)
[2017-11-08 20:00] VITALS: BP 102/66
[2017-11-08] MEDS: TIMOLOL OPHTH 0.5%, 5ML EACHEYE SCH (21:00)
[2017-11-08] MEDS: PRAVASTATIN 40 MG TABLET PO SCH (21:38)
[2017-11-08] MEDS: TRAZODONE 100MG TABLET PO SCH (21:39)
[2017-11-08] MEDS: CLOPIDOGREL 75 MG TABLET PO SCH (21:39)
[2017-11-08] MEDS: SODIUM CHLORIDE FLUSH 10ML SYR IVF SCH (21:40)
[2017-11-08] MEDS: SODIUM CHLORIDE 0.9% 1,000 ML IV SCH (21:59)
[2017-11-09] VITALS (13 sets, daily range): BP systolic 64–109; BP diastolic 32–66
[2017-11-09] MEDS: PIPERACILLIN/TAZO/PMX 2.25GM 50 ML IVPB SCH ×5 (00:24→23:33)
[2017-11-09] MEDS: HYDROCHLOROTHIAZIDE 25 MG TABLET PO SCH (01:09)
[2017-11-09] MEDS: FUROSEMIDE 20 MG TABLET PO SCH (01:09)
[2017-11-09] MEDS ORDERED: SODIUM CHLORIDE 0.9%, 500ML IVBOLUS ONE (01:30)
[2017-11-09] MEDS: SODIUM CHLORIDE 0.9% 1,000 ML IV SCH ×2 (03:35→21:04)
[2017-11-09 05:41] LABS: BASOPHILS # (AUTO) 0.05 x10^3/uL (0-0.1); BASOPHILS % (AUTO) 1 % (0-1); EOSINOPHILS # (AUTO) 0.24 x10^3/uL (0-0.4); EOSINOPHILS % (AUTO) 3 % (1-7); LYMPHOCYTES # (AUTO) 1.25 x10^3/uL (1-3.4); LYMPHOCYTES % (AUTO) 17 % (22-44); MD NO; MEAN CORPUSCULAR HEMOGLOBIN 28.5 pg (27.5-34.5); MEAN CORPUSCULAR HGB CONC 33.6 g/dL (33.2-36.2); MEAN CORPUSCULAR VOLUME 84.8 fL (81-97); MEAN PLATELET VOLUME 7.3 fL (7.4-10.4); MONOCYTES # (AUTO) 0.84 x10^3/uL (0.2-0.8); MONOCYTES % (AUTO) 11 % (2-9); NEUTROPHILS # (AUTO) 5.21 x10^3/uL (1.8-6.8); NEUTROPHILS % (AUTO) 69 % (42-75); PLATELET COUNT 392 x10^3/uL (130-400); RED BLOOD COUNT 3.29 x10^6/uL (4.38-5.82); RED CELL DISTRIBUTION WIDTH 15.2 % (9.4-14.8)
[2017-11-09 05:54] LABS: ANION GAP 7 mmol/L (5-15); CALCIUM 8.1 mg/dL (8.5-10.1); CHLORIDE 104 mmol/L (98-107)
[2017-11-09] MEDS: ROPINIROLE 0.5MG TABLET PO SCH ×4 (06:18→20:37)
[2017-11-09] MEDS: HEPARIN 5,000 UNITS/ML, 1ML SQ SCH ×3 (06:18→23:33)
[2017-11-09] MEDS: INSULIN ASPART 100 UNITS/ML, PEN SQ-INSULIN SCH ×4 (07:43→20:38)
[2017-11-09] MEDS: INSULIN DETEMIR 100 UNITS/ML, PEN SQ-INSULIN SCH ×2 (07:44→20:38)
[2017-11-09] MEDS: SODIUM CHLORIDE FLUSH 10ML SYR IVF SCH ×2 (07:45→20:38)
[2017-11-09] MEDS: POTASSIUM CHLORIDE 10 MEQ TABLET.ER PO SCH (07:46)
[2017-11-09] MEDS: GABAPENTIN 300 MG CAPSULE PO SCH ×3 (07:46→20:36)
[2017-11-09] MEDS: TIMOLOL OPHTH 0.5%, 5ML EACHEYE SCH ×2 (10:09→20:37)
[2017-11-09] MEDS: PRAVASTATIN 40 MG TABLET PO SCH (20:36)
[2017-11-09] MEDS: CLOPIDOGREL 75 MG TABLET PO SCH (20:36)
[2017-11-09] MEDS: TRAZODONE 100MG TABLET PO SCH (20:37)
[2017-11-10 01:17] VITALS: BP 107/57
[2017-11-10] MEDS: ROPINIROLE 0.5MG TABLET PO SCH ×4 (05:38→22:41)
[2017-11-10] MEDS: PIPERACILLIN/TAZO/PMX 2.25GM 50 ML IVPB SCH ×4 (05:38→23:44)
[2017-11-10] MEDS ORDERED: VANCOMYCIN 1,500 MG in SODIUM CHLORIDE 0.9% 250 ML IV ONE (06:00)
[2017-11-10 06:43] VITALS: BP 109/63
[2017-11-10] MEDS: INSULIN ASPART 100 UNITS/ML, PEN SQ-INSULIN SCH ×4 (07:00→21:00)
[2017-11-10] MEDS: HEPARIN 5,000 UNITS/ML, 1ML SQ SCH ×2 (08:06→18:09)
[2017-11-10] MEDS: INSULIN DETEMIR 100 UNITS/ML, PEN SQ-INSULIN SCH ×2 (08:07→22:50)
[2017-11-10] MEDS: TIMOLOL OPHTH 0.5%, 5ML EACHEYE SCH ×2 (08:07→22:41)
[2017-11-10] MEDS: SODIUM CHLORIDE FLUSH 10ML SYR IVF SCH ×2 (08:07→22:42)
[2017-11-10] MEDS: GABAPENTIN 300 MG CAPSULE PO SCH ×3 (08:08→22:42)
[2017-11-10] MEDS: POTASSIUM CHLORIDE 10 MEQ TABLET.ER PO SCH (08:08)
[2017-11-10] MEDS: HYDROCHLOROTHIAZIDE 25 MG TABLET PO SCH (08:08)
[2017-11-10] MEDS: FUROSEMIDE 20 MG TABLET PO SCH (08:09)
[2017-11-10] MEDS: SODIUM CHLORIDE 0.9% 1,000 ML IV SCH ×2 (11:44→23:44)
[2017-11-10 14:00] VITALS: BP 109/63
[2017-11-10 19:47] VITALS: BP 115/69
[2017-11-10] MEDS: PRAVASTATIN 40 MG TABLET PO SCH (22:41)
[2017-11-10] MEDS: CLOPIDOGREL 75 MG TABLET PO SCH (22:42)
[2017-11-10] MEDS: TRAZODONE 100MG TABLET PO SCH (22:42)
[2017-11-11 01:25] VITALS: BP 93/56
[2017-11-11] MEDS: HEPARIN 5,000 UNITS/ML, 1ML SQ SCH ×2 (01:36→08:45)
[2017-11-11] MEDS: ROPINIROLE 0.5MG TABLET PO SCH ×2 (05:22→12:28)
[2017-11-11] MEDS: PIPERACILLIN/TAZO/PMX 2.25GM 50 ML IVPB SCH ×2 (05:23→12:28)
[2017-11-11 06:53] VITALS: BP 132/70
[2017-11-11] MEDS: INSULIN ASPART 100 UNITS/ML, PEN SQ-INSULIN SCH ×2 (07:00→12:29)
[2017-11-11] MEDS: INSULIN DETEMIR 100 UNITS/ML, PEN SQ-INSULIN SCH (08:00)
[2017-11-11] MEDS: TIMOLOL OPHTH 0.5%, 5ML EACHEYE SCH (08:44)
[2017-11-11] MEDS: POTASSIUM CHLORIDE 10 MEQ TABLET.ER PO SCH (08:45)
[2017-11-11] MEDS: SODIUM CHLORIDE FLUSH 10ML SYR IVF SCH (08:45)
[2017-11-11] MEDS: HYDROCHLOROTHIAZIDE 25 MG TABLET PO SCH (08:45)
[2017-11-11] MEDS: GABAPENTIN 300 MG CAPSULE PO SCH (08:45)
[2017-11-11] MEDS: FUROSEMIDE 20 MG TABLET PO SCH (08:46)
[2017-11-11] MEDS ORDERED: CLIN300C8 PO (12:42)
[2017-11-11 12:56] VITALS: BP 135/65
[2017-11-11] MEDS ORDERED: FLU VACC QS2017-18 (36MOS+) UP/PF 0.5 ML IM-VACC ONE (14:30)
[2017-11-11] MEDS: SODIUM CHLORIDE 0.9% 1,000 ML IV SCH (14:40)
[2017-11-21] MEDS ORDERED: LEVO100T PO (19:12)
== END 2017-11-11 17:37 | disposition home or self-care (01) | DRG 682 ==
LOC: ED 14:53 → EDIP 14:57 → 3NE 16:22
PROVIDERS: ADMIT Family Medicine; ATTEND Family Medicine
DX: N17.9 Acute kidney failure, unspecified (principal); E43 Unspecified severe protein-calorie malnutrition; D76.3 Other histiocytosis syndromes; L03.115 Cellulitis of right lower limb; E87.1 Hypo-osmolality and hyponatremia; E11.22 Type 2 diabetes mellitus with diabetic chronic kidney disease; E11.51 Type 2 diabetes mellitus with diabetic peripheral angiopathy without gangrene; I13.0 Hypertensive heart and chronic kidney disease with heart failure and stage 1 through stage 4 chronic kidney disease, or unspecified chronic kidney disease; L97.909 Non-pressure chronic ulcer of unspecified part of unspecified lower leg with unspecified severity; L03.116 Cellulitis of left lower limb; E11.622 Type 2 diabetes mellitus with other skin ulcer; I83.009 Varicose veins of unspecified lower extremity with ulcer of unspecified site; I87.8 Other specified disorders of veins; E03.9 Hypothyroidism, unspecified; D63.8 Anemia in other chronic diseases classified elsewhere; I73.9 Peripheral vascular disease, unspecified; G25.81 Restless legs syndrome; B95.62 Methicillin resistant Staphylococcus aureus infection as the cause of diseases classified elsewhere; E78.5 Hyperlipidemia, unspecified; E87.5 Hyperkalemia; E87.6 Hypokalemia; F03.90 Unspecified dementia, unspecified severity, without behavioral disturbance, psychotic disturbance, mood disturbance, and anxiety; I25.10 Atherosclerotic heart disease of native coronary artery without angina pectoris; Z96.651 Presence of right artificial knee joint; J44.9 Chronic obstructive pulmonary disease, unspecified; N18.3 Chronic kidney disease, stage 3 (moderate); Z66 Do not resuscitate; Z79.899 Other long term (current) drug therapy; Z85.118 Personal history of other malignant neoplasm of bronchus and lung; Z85.46 Personal history of malignant neoplasm of prostate; Z86.14 Personal history of Methicillin resistant Staphylococcus aureus infection; Z87.891 Personal history of nicotine dependence; I25.2 Old myocardial infarction; Z90.49 Acquired absence of other specified parts of digestive tract; Z90.89 Acquired absence of other organs; Z90.79 Acquired absence of other genital organ(s); Z91.048 Other nonmedicinal substance allergy status; Z79.4 Long term (current) use of insulin; Z23 Encounter for immunization
CPT/HCPCS: 36415; 80048; 80053; 80202; 82962; 83605; 84443; 85025; 85610; 85730; 87040; 87070; 87077; 87186; 87205; 90686; 93005; 96365; 96367; J0690; J1644; J1815; J2543; J3370; J2270; J7030; J7040; J7050

== ENCOUNTER 2018-08-18 16:12 | Emergency (ER) | payer MEDICARE, MEDICAID ==
[~2018-08-18] VITALS: Ht 167.6 cm; Wt 85.0 kg
[~2018-08-18 16:12] MED LIST changes: -AMLO10TA2 PO; +AMLO10TA6 PO; -ASPI-770 PO; +ASPI81TA59 PO; +DIPH28CR5 TP; +FURO20TA3 PO; +GABA-826 PO; +GABA300C10 PO; +INSU100C5 SQ-INSULIN; +INSU100I11 SQ-INSULIN; +LEVO100T PO; +LEVO125T PO; +LORA10TA75 PO; +LOSA25TA2 PO; +NYST60PO TP; +OMEP-110 PO; +OXYC-432 PO; -OXYC1TAB9 PO; +POTA10TA6 PO; +ROPI0.5T PO; -SENN1TAB7 PO; +SENN1TAB8 PO; +SODI44SP NAS; +TAMS-11 PO; +TRAZ-136 PO; +TRAZ-137 PO; -TRAZ100T15 PO; -TRAZ50TA18 PO
[2018-08-18] MEDS ORDERED: ONDANSETRON 2MG/ML, 2ML IVPush ONE (17:00)
[2018-08-18] MEDS ORDERED: LIDOCAINE 2%,20 ML JEL.PF.APP MM ONE ×2 (17:00→17:09)
[2018-08-18] MEDS ORDERED: morphine SULFATE 10 MG/ML, 1ML IVPush ONE (17:00)
[2018-08-18] MEDS ORDERED: ONDANSETRON 2MG/ML, 2ML ONE (17:08)
[2018-08-18] MEDS ORDERED: MORPHINE SULFATE 4 MG/ML, 1ML ONE (17:09)
[2018-08-18 18:48] LABS: CULTURE INDICATED? YES; MICROSCOPIC INDICATED
[2018-08-18 20:00] VITALS: BP 118/74
== END 2018-08-18 20:52 | disposition home or self-care (01) ==
LOC: ED 18:38
DX: T83.018A Breakdown (mechanical) of other urinary catheter, initial encounter (principal); M54.9 Dorsalgia, unspecified; G89.29 Other chronic pain; I25.10 Atherosclerotic heart disease of native coronary artery without angina pectoris; I10 Essential (primary) hypertension; E78.5 Hyperlipidemia, unspecified; E03.9 Hypothyroidism, unspecified; I25.2 Old myocardial infarction; E11.9 Type 2 diabetes mellitus without complications; Z90.49 Acquired absence of other specified parts of digestive tract; C61 Malignant neoplasm of prostate
CPT/HCPCS: 51702; 81001; 87086; 96374; 96375; 99284; J2270; J2405; 87077; 87186

== ENCOUNTER 2018-10-19 11:21 | Inpatient (IN) | payer OTHER, MEDICAID ==
[~2018-10-19] VITALS: Ht 170.2 cm; Wt 91.1 kg
[~2018-10-19 11:21] MED LIST changes: -ASPI-621 PO; +ASPI81TA45 PO; -TRAZ-136 PO; +TRAZ50TA66 PO
[2018-10-19] MEDS ORDERED: SODIUM CHLORIDE FLUSH 10ML SYR IVF ONE (11:30)
[2018-10-19 12:18] LABS: BASOPHILS # (AUTO) 0.05 x10^3/uL (0-0.1); BASOPHILS % (AUTO) 1 % (0-1); EOSINOPHILS # (AUTO) 0.36 x10^3/uL (0-0.4); EOSINOPHILS % (AUTO) 6 % (1-7); LYMPHOCYTES # (AUTO) 1.04 x10^3/uL (1-3.4); LYMPHOCYTES % (AUTO) 18 % (22-44); MD NO; MEAN CORPUSCULAR HEMOGLOBIN 28.9 pg (27.5-34.5); MEAN CORPUSCULAR HGB CONC 33.4 g/dL (33.2-36.2); MEAN CORPUSCULAR VOLUME 86.4 fL (81-97); MEAN PLATELET VOLUME 7.9 fL (7.4-10.4); MONOCYTES # (AUTO) 0.41 x10^3/uL (0.2-0.8); MONOCYTES % (AUTO) 7 % (2-9); NEUTROPHILS % (AUTO) 67 % (42-75); PLATELET COUNT 376 x10^3/uL (130-400); RED BLOOD COUNT 4.12 x10^6/uL (4.38-5.82); RED CELL DISTRIBUTION WIDTH 15.3 % (9.4-14.8)
[2018-10-19 12:21] LABS: INTERNATIONAL NORMALIZED RATIO 0.94 (0.93-1.1)
[2018-10-19 12:22] LABS: ALANINE AMINOTRANSFERASE 30 U/L (12-78); ANION GAP 7 mmol/L (5-15); CALCIUM 8.4 mg/dL (8.5-10.1); CHLORIDE 100 mmol/L (98-107); CREATININE 1.97 mg/dL (0.7-1.3)
[2018-10-19 12:27] LABS: ALKALINE PHOSPHATASE 142 U/L (45-117); BILIRUBIN,TOTAL 0.3 mg/dL (0.2-1.0); TOTAL PROTEIN 7.8 g/dL (6.4-8.2)
[2018-10-19] MEDS ORDERED: DEXTROSE 50%, 50ML SYRINGE ONE ×2 (12:53→17:55)
[2018-10-19] MEDS ORDERED: SODIUM BICARB 8.4%, 50ML SYRINGE ONE (12:53)
[2018-10-19] MEDS ORDERED: CALCIUM CHLORIDE 10%, 10ML SYR ONE (12:53)
[2018-10-19] MEDS ORDERED: INSULIN REGULAR 100 UNITS/ML, 3ML VIAL ONE (12:55)
[2018-10-19] MEDS ORDERED: SODIUM BICARB 8.4%, 50ML SYRINGE IVPush ONE (13:00)
[2018-10-19] MEDS ORDERED: INSULIN REGULAR 100 UNITS/ML, 3ML VIAL IVPush ONE (13:00)
[2018-10-19] MEDS ORDERED: CALCIUM CHLORIDE 10%, 10ML SYR IVPush ONE (13:00)
[2018-10-19] MEDS ORDERED: SODIUM POLY SULFONATE UDC 15 GM/60 ML PO ONE (13:00)
[2018-10-19] MEDS ORDERED: DEXTROSE 50%, 50ML SYRINGE IVPush ONE (13:00)
[2018-10-19] MEDS ORDERED: SODIUM CHLORIDE FLUSH 10ML SYR IVF PRN (15:30)
[2018-10-19] MEDS ORDERED: DEXTROSE 4 GM TAB.CHEW PO PRN (18:00)
[2018-10-19] MEDS ORDERED: LORATADINE 10 MG TABLET PO PRN (18:00)
[2018-10-19] MEDS ORDERED: ONDANSETRON ODT 4 MG PO PRN (18:00)
[2018-10-19] MEDS ORDERED: GLUCAGON 1 MG IM PRN (18:00)
[2018-10-19] MEDS ORDERED: hydrALAzine 20 MG/ML, 1ML IVPush PRN (18:00)
[2018-10-19] MEDS ORDERED: ONDANSETRON 2MG/ML, 2ML IVPush PRN (18:00)
[2018-10-19 18:10] LABS: ANION GAP 7 mmol/L (5-15); CALCIUM 7.9 mg/dL (8.5-10.1); CHLORIDE 102 mmol/L (98-107); CREATININE 1.81 mg/dL (0.7-1.3)
[2018-10-19 18:17] LABS: TROPONIN I < 0.015 ng/mL (0.000-0.045)
[2018-10-19] MEDS: DEXTROSE 50%, 50ML SYRINGE IVPush PRN ×2 (18:43→19:01)
[2018-10-19 20:11] VITALS: BP 124/67
[2018-10-19 20:55] LABS: FREE T4 (FREE THYROXINE) 0.98 ng/dL (0.76-1.46)
[2018-10-19] MEDS: SODIUM CHLORIDE FLUSH 10ML SYR IVF SCH (21:00)
[2018-10-19] MEDS ORDERED: INSULIN GLARGINE 100 UNITS/ML, PEN SQ-INSULIN SCH (21:00)
[2018-10-19] MEDS: INSULIN LISPRO 100 UNITS/ML, PEN SQ-INSULIN SCH (21:00)
[2018-10-19] MEDS: GABAPENTIN 100 MG CAPSULE PO SCH (23:36)
[2018-10-19] MEDS: ROPINIROLE 0.5MG TABLET PO SCH (23:36)
[2018-10-19 23:57] LABS: TROPONIN I < 0.015 ng/mL (0.000-0.045)
[2018-10-20 00:01] VITALS: BP 124/68
[2018-10-20 00:47] VITALS: BP 122/81
[2018-10-20 05:39] VITALS: BP 130/75
[2018-10-20] MEDS: LEVOTHYROXINE 175 MCG TABLET PO SCH (05:45)
[2018-10-20] MEDS: ROPINIROLE 0.5MG TABLET PO SCH ×4 (05:45→20:07)
[2018-10-20] MEDS: CARVEDILOL 3.125 MG TABLET PO SCH ×2 (05:45→17:28)
[2018-10-20] MEDS: PANTOPROZOLE 40MG TABLET PO SCH (05:45)
[2018-10-20 05:56] LABS: BASOPHILS # (AUTO) 0.03 x10^3/uL (0-0.1); BASOPHILS % (AUTO) 1 % (0-1); EOSINOPHILS # (AUTO) 0.27 x10^3/uL (0-0.4); EOSINOPHILS % (AUTO) 4 % (1-7); LYMPHOCYTES # (AUTO) 0.96 x10^3/uL (1-3.4); LYMPHOCYTES % (AUTO) 16 % (22-44); MD NO; MEAN CORPUSCULAR HEMOGLOBIN 28.6 pg (27.5-34.5); MEAN CORPUSCULAR HGB CONC 33.2 g/dL (33.2-36.2); MEAN CORPUSCULAR VOLUME 86.2 fL (81-97); MEAN PLATELET VOLUME 7.9 fL (7.4-10.4); MONOCYTES # (AUTO) 0.46 x10^3/uL (0.2-0.8); MONOCYTES % (AUTO) 7 % (2-9); NEUTROPHILS # (AUTO) 4.49 x10^3/uL (1.8-6.8); NEUTROPHILS % (AUTO) 72 % (42-75); PLATELET COUNT 348 x10^3/uL (130-400); RED BLOOD COUNT 4.12 x10^6/uL (4.38-5.82); RED CELL DISTRIBUTION WIDTH 15.8 % (9.4-14.8)
[2018-10-20] MEDS ORDERED: CARVEDILOL 3.125 MG TABLET PO SCH (06:00)
[2018-10-20] MEDS ORDERED: LEVOTHYROXINE 125 MCG TABLET PO SCH (06:00)
[2018-10-20 06:10] LABS: ANION GAP 7 mmol/L (5-15); CALCIUM 8.3 mg/dL (8.5-10.1); CHLORIDE 99 mmol/L (98-107)
[2018-10-20 06:11] LABS: CREATININE 1.64 mg/dL (0.7-1.3)
[2018-10-20] MEDS: INSULIN LISPRO 100 UNITS/ML, PEN SQ-INSULIN SCH ×4 (07:00→20:05)
[2018-10-20] MEDS ORDERED: OMEPRAZOLE 20 MG CAPSULE.DR PO SCH (07:30)
[2018-10-20 07:55] VITALS: BP 116/55
[2018-10-20] MEDS ORDERED: INSULIN GLARGINE 100 UNITS/ML, PEN SQ-INSULIN SCH ×2 (08:00→21:00)
[2018-10-20] MEDS: CLOPIDOGREL 75 MG TABLET PO SCH (09:17)
[2018-10-20] MEDS: SODIUM CHLORIDE FLUSH 10ML SYR IVF SCH ×2 (09:17→20:06)
[2018-10-20] MEDS: FUROSEMIDE 40 MG TABLET PO SCH ×2 (09:17→17:28)
[2018-10-20] MEDS: GABAPENTIN 100 MG CAPSULE PO SCH ×3 (09:18→20:06)
[2018-10-20] MEDS: TAMSULOSIN 0.4 MG CAP.ER.24H PO SCH (09:18)
[2018-10-20 12:13] LABS: CHLORIDE 100 mmol/L (98-107)
[2018-10-20 12:18] LABS: ANION GAP 5 mmol/L (5-15); CALCIUM 7.8 mg/dL (8.5-10.1); CREATININE 1.51 mg/dL (0.7-1.3)
[2018-10-20 13:09] VITALS: BP 118/73
[2018-10-20 20:21] VITALS: BP 126/70
[2018-10-21 01:32] VITALS: BP 123/73
[2018-10-21] MEDS: ROPINIROLE 0.5MG TABLET PO SCH ×4 (05:20→20:35)
[2018-10-21] MEDS: LEVOTHYROXINE 175 MCG TABLET PO SCH (05:20)
[2018-10-21 05:21] LABS: BASOPHILS # (AUTO) 0.03 x10^3/uL (0-0.1); BASOPHILS % (AUTO) 1 % (0-1); EOSINOPHILS # (AUTO) 0.18 x10^3/uL (0-0.4); EOSINOPHILS % (AUTO) 3 % (1-7); LYMPHOCYTES # (AUTO) 1.12 x10^3/uL (1-3.4); LYMPHOCYTES % (AUTO) 19 % (22-44); MD NO; MEAN CORPUSCULAR HEMOGLOBIN 27.6 pg (27.5-34.5); MEAN CORPUSCULAR VOLUME 86.2 fL (81-97); MEAN PLATELET VOLUME 7.6 fL (7.4-10.4); MONOCYTES # (AUTO) 0.48 x10^3/uL (0.2-0.8); MONOCYTES % (AUTO) 8 % (2-9); NEUTROPHILS # (AUTO) 4.08 x10^3/uL (1.8-6.8); NEUTROPHILS % (AUTO) 69 % (42-75); PLATELET COUNT 385 x10^3/uL (130-400); RED BLOOD COUNT 4.13 x10^6/uL (4.38-5.82); RED CELL DISTRIBUTION WIDTH 15.6 % (9.4-14.8)
[2018-10-21] MEDS: CARVEDILOL 3.125 MG TABLET PO SCH ×2 (05:21→17:32)
[2018-10-21] MEDS: PANTOPROZOLE 40MG TABLET PO SCH (05:21)
[2018-10-21 05:36] LABS: ALBUMIN 2.6 g/dL (3.4-5.0); ANION GAP 8 mmol/L (5-15); CALCIUM 8.2 mg/dL (8.5-10.1); CHLORIDE 103 mmol/L (98-107)
[2018-10-21 05:40] LABS: ALANINE AMINOTRANSFERASE 26 U/L (12-78); ALKALINE PHOSPHATASE 126 U/L (45-117); BILIRUBIN,TOTAL 0.2 mg/dL (0.2-1.0); CREATININE 1.39 mg/dL (0.7-1.3); TOTAL PROTEIN 6.9 g/dL (6.4-8.2)
[2018-10-21 07:00] VITALS: BP 116/66
[2018-10-21] MEDS: INSULIN LISPRO 100 UNITS/ML, PEN SQ-INSULIN SCH ×4 (07:00→20:37)
[2018-10-21 09:10] VITALS: BP 117/58
[2018-10-21] MEDS: TAMSULOSIN 0.4 MG CAP.ER.24H PO SCH (09:11)
[2018-10-21] MEDS: GABAPENTIN 100 MG CAPSULE PO SCH ×3 (09:11→20:36)
[2018-10-21] MEDS: FUROSEMIDE 40 MG TABLET PO SCH ×2 (09:11→17:32)
[2018-10-21] MEDS: CLOPIDOGREL 75 MG TABLET PO SCH (09:11)
[2018-10-21] MEDS: SODIUM CHLORIDE FLUSH 10ML SYR IVF SCH ×2 (09:13→20:37)
[2018-10-21 14:00] VITALS: BP 137/56
[2018-10-21 17:20] VITALS: BP 165/81
[2018-10-21 18:36] VITALS: BP 118/54
[2018-10-21] MEDS ORDERED: INSULIN GLARGINE 100 UNITS/ML, PEN SQ-INSULIN SCH (21:00)
[2018-10-21] MEDS ORDERED: DIPHENHYDRAMINE 50 MG CAPSULE ONE (23:24)
[2018-10-21] MEDS: ACETAMINOPHEN 325 MG TABLET PO PRN (23:26)
[2018-10-21] MEDS ORDERED: DIPHENHYDRAMINE 50 MG CAPSULE PO PRN ×2 (23:30→23:45)
[2018-10-22 01:01] VITALS: BP 109/65
[2018-10-22 04:54] LABS: ANION GAP 7 mmol/L (5-15); CALCIUM 7.8 mg/dL (8.5-10.1); CHLORIDE 101 mmol/L (98-107); CREATININE 1.39 mg/dL (0.7-1.3)
[2018-10-22] MEDS: CARVEDILOL 3.125 MG TABLET PO SCH (05:06)
[2018-10-22] MEDS: ROPINIROLE 0.5MG TABLET PO SCH ×2 (05:06→11:22)
[2018-10-22] MEDS: LEVOTHYROXINE 175 MCG TABLET PO SCH (05:06)
[2018-10-22] MEDS: PANTOPROZOLE 40MG TABLET PO SCH (05:06)
[2018-10-22] MEDS ORDERED: DIPHENHYDRAMINE 50 MG CAPSULE PO PRN (05:30)
[2018-10-22] MEDS: INSULIN LISPRO 100 UNITS/ML, PEN SQ-INSULIN SCH ×2 (07:00→12:06)
[2018-10-22 07:02] VITALS: BP 120/63
[2018-10-22] MEDS ORDERED: INSULIN GLARGINE 100 UNITS/ML, PEN SQ-INSULIN SCH (08:00)
[2018-10-22] MEDS: SODIUM CHLORIDE FLUSH 10ML SYR IVF SCH (09:00)
[2018-10-22] MEDS: CLOPIDOGREL 75 MG TABLET PO SCH (09:45)
[2018-10-22] MEDS: TAMSULOSIN 0.4 MG CAP.ER.24H PO SCH (09:45)
[2018-10-22] MEDS: GABAPENTIN 100 MG CAPSULE PO SCH (09:45)
[2018-10-22] MEDS: FUROSEMIDE 40 MG TABLET PO SCH (09:45)
[2018-10-22] MEDS: ACETAMINOPHEN 325 MG TABLET PO PRN (10:12)
[2018-10-22] MEDS ORDERED: INSU100I13 SQ-INSULIN ×2 (13:26)
[2018-10-22 13:55] VITALS: BP 131/75
== END 2018-10-22 16:44 | disposition home or self-care (01) | DRG 683 ==
LOC: ED 11:46 → EDIP 15:09 → 4WST 17:35
PROVIDERS: ADMIT Family Medicine; ATTEND Family Medicine
DX: N17.9 Acute kidney failure, unspecified (principal); D76.3 Other histiocytosis syndromes; I42.9 Cardiomyopathy, unspecified; I50.42 Chronic combined systolic (congestive) and diastolic (congestive) heart failure; K86.1 Other chronic pancreatitis; I13.0 Hypertensive heart and chronic kidney disease with heart failure and stage 1 through stage 4 chronic kidney disease, or unspecified chronic kidney disease; I12.9 Hypertensive chronic kidney disease with stage 1 through stage 4 chronic kidney disease, or unspecified chronic kidney disease; N18.3 Chronic kidney disease, stage 3 (moderate); E87.5 Hyperkalemia; C61 Malignant neoplasm of prostate; E03.9 Hypothyroidism, unspecified; E11.22 Type 2 diabetes mellitus with diabetic chronic kidney disease; E11.51 Type 2 diabetes mellitus with diabetic peripheral angiopathy without gangrene; E11.649 Type 2 diabetes mellitus with hypoglycemia without coma; E78.5 Hyperlipidemia, unspecified; I25.10 Atherosclerotic heart disease of native coronary artery without angina pectoris; I25.2 Old myocardial infarction; I34.0 Nonrheumatic mitral (valve) insufficiency; I70.0 Atherosclerosis of aorta; J44.9 Chronic obstructive pulmonary disease, unspecified; K40.20 Bilateral inguinal hernia, without obstruction or gangrene, not specified as recurrent; M19.90 Unspecified osteoarthritis, unspecified site; N40.0 Benign prostatic hyperplasia without lower urinary tract symptoms; R32 Unspecified urinary incontinence; Z66 Do not resuscitate; Z79.4 Long term (current) use of insulin; Z80.1 Family history of malignant neoplasm of trachea, bronchus and lung; Z85.118 Personal history of other malignant neoplasm of bronchus and lung; Z91.048 Other nonmedicinal substance allergy status; Z86.14 Personal history of Methicillin resistant Staphylococcus aureus infection; Z87.891 Personal history of nicotine dependence; Z90.49 Acquired absence of other specified parts of digestive tract; Z99.81 Dependence on supplemental oxygen; Z82.49 Family history of ischemic heart disease and other diseases of the circulatory system; Z83.3 Family history of diabetes mellitus; Z79.899 Other long term (current) drug therapy; K21.9 Gastro-esophageal reflux disease without esophagitis; R00.1 Bradycardia, unspecified; E11.40 Type 2 diabetes mellitus with diabetic neuropathy, unspecified
CPT/HCPCS: 36415; 71045; 74176; 80048; 80053; 82962; 83880; 84439; 84443; 84484; 85025; 85610; 85730; 93005; 96374; 96375; 99285; G0378; J1815

== ENCOUNTER 2019-01-09 11:06 | Inpatient (IN) | payer OTHER, MEDICAID ==
[~2019-01-09] VITALS: Ht 172.7 cm; Wt 89.5 kg
[~2019-01-09 11:06] MED LIST changes: -AMLO10TA6 PO; +AMLO10TA8 PO; +INSU100I13 SQ-INSULIN; +SENN-177 PO; -SENN1TAB8 PO
--- NOTE | 2019-01-09 11:17 | NUR ---
Pt arrives [facility] via [facility]. Onset of SOB/resp distress during physical therapy @ intermediate today. Pt is oxygen dependent at 2l & remained on it during PT. Sats on scene reportedly 72% on 2 L. [facility] placed pt on 15L with best SPO2 at 89%. Pt is lethargic, & only occasionaly talks to state he is cold. Tachypneic in 30's. Lung sounds greatly diminished all kenny, BLE are swollen, 4+ pitting edema through mid thigh. Redness & warmth to BLE also present with draining wound R nuñez. EKG done, cardiac, NIBP & SPO2 monitors IP. Duoneb was IP @ arrival. Pt placed on BiPap @ rate 8/100%.
[2019-01-09] MEDS ORDERED: SODIUM CHLORIDE FLUSH 10ML SYR IVF ONE (11:30)
[2019-01-09] MEDS ORDERED: methylPREDNISolone SOD SUCC 125 MG/2 ML IVP ONE (11:30)
--- NOTE | 2019-01-09 11:39 | NUR ---
Pt's mentation & RR unchanged, SPO2 96% on bipap now @ 100%o2, I 14/E 6 . Unable to obtain IV access after multiple attempts. US IV being attempted now. Pt's shelter [facility] called & requested they fax over pt's POLST.
[2019-01-09 11:51] LABS: BASOPHILS # (AUTO) 0.03 x10^3/uL (0-0.1); BASOPHILS % (AUTO) 0 % (0-1); EOSINOPHILS # (AUTO) 0.03 x10^3/uL (0-0.4); EOSINOPHILS % (AUTO) 0 % (1-7); LYMPHOCYTES # (AUTO) 0.37 x10^3/uL (1-3.4); LYMPHOCYTES % (AUTO) 5 % (22-44); MD NO; MEAN CORPUSCULAR HEMOGLOBIN 28.3 pg (27.5-34.5); MEAN CORPUSCULAR HGB CONC 33.1 g/dL (33.2-36.2); MEAN CORPUSCULAR VOLUME 85.4 fL (81-97); MEAN PLATELET VOLUME 8.1 fL (7.4-10.4); MONOCYTES # (AUTO) 0.13 x10^3/uL (0.2-0.8); MONOCYTES % (AUTO) 2 % (2-9); NEUTROPHILS # (AUTO) 7.44 x10^3/uL (1.8-6.8); NEUTROPHILS % (AUTO) 93 % (42-75); PLATELET COUNT 357 x10^3/uL (130-400); RED BLOOD COUNT 4.63 x10^6/uL (4.38-5.82); RED CELL DISTRIBUTION WIDTH 14.8 % (9.4-14.8)
[2019-01-09 12:00] LABS: CHLORIDE 106 mmol/L (98-107)
[2019-01-09] MEDS ORDERED: FUROSEMIDE 100 MG/10 ML IV ONE (12:00)
--- NOTE | 2019-01-09 12:03 | NUR ---
Pt has begun moving arms, making sounds & statements that don't make sense. Following commands when asked, no motor deficits noted. Pt oriented as to what happened during resp distress event & arrival @ [facility]. POA & DNR paperwork faxed from care home & placed on pt's chart. Unable to obtain vascular access after multiple attempts by this RN as well as 2 other RN's & EDTA including US IV. Dr. Chauhan aware & is ordering PICC line placement.
[2019-01-09 12:10] LABS: ALANINE AMINOTRANSFERASE 22 U/L (12-78); ALBUMIN 2.4 g/dL (3.4-5.0); ALKALINE PHOSPHATASE 134 U/L (45-117); ANION GAP 5 mmol/L (5-15); BILIRUBIN,TOTAL 0.4 mg/dL (0.2-1.0); CALCIUM 8.1 mg/dL (8.5-10.1); TOTAL PROTEIN 6.7 g/dL (6.4-8.2); TROPONIN I < 0.015 ng/mL (0.000-0.045)
[2019-01-09] MEDS ORDERED: FUROSEMIDE 40 MG/4 ML ONE (12:14)
[2019-01-09] MEDS ORDERED: methylPREDNISolone SOD SUCC 125 MG/2 ML ONE (12:14)
--- NOTE | 2019-01-09 12:27 | NUR ---
Pt remains more alert, mumbling incoherently. Reached to remove mask once but easily redirectable. VSS
[2019-01-09] MEDS ORDERED: ACETAMINOPHEN 325 MG TABLET PO PRN ×2 (13:00→17:00)
[2019-01-09] MEDS ORDERED: hydrALAzine 20 MG/ML, 1ML IVPush PRN (13:00)
[2019-01-09] MEDS ORDERED: KETOROLAC 30 MG/1 ML IV PRN (13:00)
[2019-01-09] MEDS ORDERED: morphine SULFATE 10 MG/ML, 1ML IVPush PRN (13:00)
[2019-01-09] MEDS ORDERED: SODIUM CHLORIDE FLUSH 10ML SYR IVF PRN (13:00)
[2019-01-09] MEDS ORDERED: DOCUSATE 100 MG CAPSULE PO PRN (13:00)
[2019-01-09] MEDS ORDERED: ENALAPRILAT 1.25 MG/ML, 2ML IVPush PRN (13:00)
[2019-01-09] MEDS ORDERED: BISACODYL 10 MG SUPP PR PRN (13:00)
[2019-01-09] MEDS ORDERED: ONDANSETRON 2MG/ML, 2ML IVPush PRN (13:00)
--- NOTE | 2019-01-09 13:02 | NUR ---
IR @ BS setting up for PICC line
[2019-01-09] MEDS ORDERED: GLUCAGON 1 MG IM PRN (13:30)
[2019-01-09] MEDS ORDERED: DEXTROSE 50%, 50ML SYRINGE IVPush PRN (13:30)
[2019-01-09] MEDS ORDERED: DEXTROSE 4 GM TAB.CHEW PO PRN (13:30)
--- NOTE | 2019-01-09 14:03 | NUR ---
Called & spoke with Dr. Alvarez regarding PICC line placement. Per radiologist, PICC line is in axillary vein & fine for use for the next couple of days. Any issues & PICC line will be replaced in IR.
--- NOTE | 2019-01-09 14:18 | NUR ---
Pt incontinent of urine. When cleaning him, found his penis to be possibly fused to scrotum with urine leaking out of one of several holes present. Pt's condition/anatomy brought to attention of attending [facility] physicians. After they visualized it, plan to attempt to place vasquez discussed but ultimately decided to consult urology & not attempt to place a vasquez catheter.
--- NOTE | 2019-01-09 14:30 | NUR ---
Pt oxygen weaned to 50%. Continues to be more alert & interactive. Still requires occasional redirection to not pull off mask.
--- NOTE | 2019-01-09 14:45 | NUR ---
Report to DALIA Castillo.
[2019-01-09 14:49] LABS: TROPONIN I < 0.015 ng/mL (0.000-0.045)
--- NOTE | 2019-01-09 14:56 | NUR ---
Transported to floor by this RN & RT Rc.
[2019-01-09] MEDS: ROPINIROLE 0.5MG TABLET PO SCH ×2 (16:00→21:00)
[2019-01-09] MEDS: GABAPENTIN 100 MG CAPSULE PO SCH ×2 (16:00→21:00)
[2019-01-09] MEDS: FUROSEMIDE 40 MG/4 ML IV SCH (17:00)
[2019-01-09] MEDS ORDERED: FUROSEMIDE 40 MG TABLET PO SCH (17:00)
[2019-01-09] MEDS: HEPARIN 5,000 UNITS/ML, 1ML SQ SCH (18:19)
[2019-01-09] MEDS: INSULIN LISPRO 100 UNITS/ML, PEN SQ-INSULIN SCH ×2 (18:21→21:43)
[2019-01-09] MEDS ORDERED: SODIUM CHLORIDE 0.9%, 500ML IVBOLUS ONE (18:30)
[2019-01-09] MEDS: ALBUTEROL/IPRATROPIUM 2.5MG/0.5MG, 3 ML NPPB SCH ×3 (19:06→22:52)
[2019-01-09] MEDS ORDERED: PHENYLEPHRINE 10 MG in SODIUM CHLORIDE 0.9% 249 ML IV PRN (20:30)
[2019-01-09] MEDS: INSULIN GLARGINE 100 UNITS/ML, PEN SQ-INSULIN SCH (21:00)
[2019-01-09] MEDS ORDERED: FAMOTIDINE 20 MG TABLET PO SCH (21:00)
[2019-01-09] MEDS: SODIUM CHLORIDE FLUSH 10ML SYR IVF SCH (21:35)
[2019-01-09] MEDS: FAMOTIDINE 20 MG/2 ML IVPush SCH (21:36)
[2019-01-09 23:14] VITALS: BP 95/49
[2019-01-10] MEDS: NYSTATIN TOPICAL POWDER 15GM TP SCH ×3 (00:20→22:10)
[2019-01-10] MEDS: HEPARIN 5,000 UNITS/ML, 1ML SQ SCH ×3 (00:20→16:34)
[2019-01-10] MEDS: ALBUTEROL/IPRATROPIUM 2.5MG/0.5MG, 3 ML NPPB SCH ×5 (02:53→20:00)
[2019-01-10 04:50] LABS: BASOPHILS # (AUTO) 0.08 x10^3/uL (0-0.1); BASOPHILS % (AUTO) 1 % (0-1); EOSINOPHILS # (AUTO) 0.09 x10^3/uL (0-0.4); EOSINOPHILS % (AUTO) 1 % (1-7); LYMPHOCYTES % (AUTO) 3 % (22-44); MD NO; MEAN CORPUSCULAR HEMOGLOBIN 28.4 pg (27.5-34.5); MEAN CORPUSCULAR HGB CONC 33.1 g/dL (33.2-36.2); MEAN CORPUSCULAR VOLUME 85.7 fL (81-97); MEAN PLATELET VOLUME 8.4 fL (7.4-10.4); MONOCYTES # (AUTO) 1.05 x10^3/uL (0.2-0.8); MONOCYTES % (AUTO) 7 % (2-9); NEUTROPHILS # (AUTO) 13.82 x10^3/uL (1.8-6.8); NEUTROPHILS % (AUTO) 90 % (42-75); PLATELET COUNT 295 x10^3/uL (130-400); RED BLOOD COUNT 3.75 x10^6/uL (4.38-5.82); RED CELL DISTRIBUTION WIDTH 15.1 % (9.4-14.8)
[2019-01-10 05:00] LABS: ANION GAP 4 mmol/L (5-15); CALCIUM 7.9 mg/dL (8.5-10.1); CHLORIDE 108 mmol/L (98-107); CREATININE 1.33 mg/dL (0.7-1.3)
[2019-01-10] MEDS: LEVOTHYROXINE 125 MCG TABLET PO SCH (05:17)
[2019-01-10] MEDS: ROPINIROLE 0.5MG TABLET PO SCH ×2 (05:17→10:03)
[2019-01-10] MEDS: FUROSEMIDE 40 MG/4 ML IV SCH (07:49)
[2019-01-10] MEDS: INSULIN GLARGINE 100 UNITS/ML, PEN SQ-INSULIN SCH ×2 (08:00→22:09)
[2019-01-10] MEDS ORDERED: LOSARTAN 25MG TABLET PO SCH (09:00)
[2019-01-10] MEDS: CLOPIDOGREL 75 MG TABLET PO SCH (09:00)
[2019-01-10] MEDS: INSULIN LISPRO 100 UNITS/ML, PEN SQ-INSULIN SCH ×4 (10:02→22:09)
[2019-01-10] MEDS: FAMOTIDINE 20 MG/2 ML IVPush SCH ×2 (10:03→21:10)
[2019-01-10] MEDS: SODIUM CHLORIDE FLUSH 10ML SYR IVF SCH ×2 (10:03→21:10)
[2019-01-10] MEDS: TAMSULOSIN 0.4 MG CAP.ER.24H PO SCH (10:03)
[2019-01-10] MEDS: GABAPENTIN 100 MG CAPSULE PO SCH ×3 (10:03→21:10)
[2019-01-10] MEDS ORDERED: FURO40TA6 PO (15:47)
[2019-01-10] MEDS: FUROSEMIDE 40 MG TABLET PO SCH (17:22)
[2019-01-10 21:03] VITALS: BP 101/59
[2019-01-11] MEDS: ALBUTEROL/IPRATROPIUM 2.5MG/0.5MG, 3 ML NPPB SCH
[2019-01-11] MEDS: HEPARIN 5,000 UNITS/ML, 1ML SQ SCH ×2 (00:20→09:25)
[2019-01-11 01:19] VITALS: BP 100/55
[2019-01-11] MEDS ORDERED: ALBUTEROL/IPRATROPIUM 2.5MG/0.5MG, 3 ML NPPB PRN (02:30)
[2019-01-11] MEDS: LEVOTHYROXINE 125 MCG TABLET PO SCH (05:12)
[2019-01-11 06:47] VITALS: BP 106/59
[2019-01-11] MEDS: INSULIN LISPRO 100 UNITS/ML, PEN SQ-INSULIN SCH (07:00)
[2019-01-11] MEDS ORDERED: BUDE90AE PO (07:11)
[2019-01-11] MEDS ORDERED: ALBU5SOL6 PO (07:11)
[2019-01-11] MEDS: INSULIN GLARGINE 100 UNITS/ML, PEN SQ-INSULIN SCH (08:00)
[2019-01-11 08:08] LABS: ANION GAP 5 mmol/L (5-15); CALCIUM 7.9 mg/dL (8.5-10.1); CHLORIDE 107 mmol/L (98-107)
[2019-01-11 08:09] LABS: CREATININE 1.54 mg/dL (0.7-1.3)
[2019-01-11] MEDS ORDERED: FAMOTIDINE 20 MG TABLET PO SCH (09:00)
[2019-01-11] MEDS: CLOPIDOGREL 75 MG TABLET PO SCH (09:25)
[2019-01-11] MEDS: GABAPENTIN 100 MG CAPSULE PO SCH (09:25)
[2019-01-11] MEDS: TAMSULOSIN 0.4 MG CAP.ER.24H PO SCH (09:25)
[2019-01-11] MEDS: FUROSEMIDE 40 MG TABLET PO SCH (09:25)
[2019-01-11] MEDS: NYSTATIN TOPICAL POWDER 15GM TP SCH (09:26)
[2019-01-11] MEDS: SODIUM CHLORIDE FLUSH 10ML SYR IVF SCH (09:26)
== END 2019-01-11 11:34 | DRG 189 ==
LOC: ED 11:43 → EDIP 14:16 → CCU 14:46 → 4EST 01-10 21:10
PROVIDERS: ADMIT Family Medicine; ATTEND Family Medicine
PROC: 02HV33Z Insertion of Infusion Device into Superior Vena Cava, Percutaneous Approach (ICD-10-PCS; principal; 2019-01-09)
PROC: B548ZZA Ultrasonography of Superior Vena Cava, Guidance (ICD-10-PCS; 2019-01-09)
PROC: 5A09357 Assistance with Respiratory Ventilation, Less than 24 Consecutive Hours, Continuous Positive Airway Pressure (ICD-10-PCS; 2019-01-09)
DX: J96.21 Acute and chronic respiratory failure with hypoxia (principal); E11.00 Type 2 diabetes mellitus with hyperosmolarity without nonketotic hyperglycemic-hyperosmolar coma (NKHHC); I50.23 Acute on chronic systolic (congestive) heart failure; I13.0 Hypertensive heart and chronic kidney disease with heart failure and stage 1 through stage 4 chronic kidney disease, or unspecified chronic kidney disease; L97.909 Non-pressure chronic ulcer of unspecified part of unspecified lower leg with unspecified severity; E87.2 Acidosis; L03.90 Cellulitis, unspecified; I42.9 Cardiomyopathy, unspecified; J96.22 Acute and chronic respiratory failure with hypercapnia; Z91.048 Other nonmedicinal substance allergy status; E03.9 Hypothyroidism, unspecified; E11.22 Type 2 diabetes mellitus with diabetic chronic kidney disease; E11.51 Type 2 diabetes mellitus with diabetic peripheral angiopathy without gangrene; E66.9 Obesity, unspecified; E78.5 Hyperlipidemia, unspecified; F03.90 Unspecified dementia, unspecified severity, without behavioral disturbance, psychotic disturbance, mood disturbance, and anxiety; G25.81 Restless legs syndrome; I25.10 Atherosclerotic heart disease of native coronary artery without angina pectoris; I25.2 Old myocardial infarction; I27.20 Pulmonary hypertension, unspecified; I34.0 Nonrheumatic mitral (valve) insufficiency; I83.009 Varicose veins of unspecified lower extremity with ulcer of unspecified site; J44.9 Chronic obstructive pulmonary disease, unspecified; K21.9 Gastro-esophageal reflux disease without esophagitis; M19.90 Unspecified osteoarthritis, unspecified site; N18.3 Chronic kidney disease, stage 3 (moderate); N40.0 Benign prostatic hyperplasia without lower urinary tract symptoms; Z66 Do not resuscitate; Z79.02 Long term (current) use of antithrombotics/antiplatelets; Z82.49 Family history of ischemic heart disease and other diseases of the circulatory system; Z83.3 Family history of diabetes mellitus; Z85.118 Personal history of other malignant neoplasm of bronchus and lung; Z85.46 Personal history of malignant neoplasm of prostate; Z86.14 Personal history of Methicillin resistant Staphylococcus aureus infection; Z87.891 Personal history of nicotine dependence; Z90.79 Acquired absence of other genital organ(s); Z99.81 Dependence on supplemental oxygen; Z90.49 Acquired absence of other specified parts of digestive tract
CPT/HCPCS: 0399T; 36415; 36573; 36600; 71045; 80048; 80053; 82533; 82803; 82962; 83735; 83880; 84100; 84484; 85025; 87081; 93005; 94640; 94660; 96374; 96375; 99291; C8929; G0378; J1644; J1940; J7620; Q9957; C1751; J1815; J2930; J3490; J7040

== ENCOUNTER 2019-03-26 11:16 | Inpatient (IN) | payer MEDICARE, MEDICAID ==
[~2019-03-26] VITALS: Ht 175.3 cm; Wt 83.6 kg
[~2019-03-26 11:16] MED LIST changes: +ALBU5SOL6 PO; +BUDE90AE PO; -CYAN100T PO; +CYAN100T2 PO; +DIPH28CR21 TP; -DIPH28CR5 TP
[2019-03-26] MEDS ORDERED: TRAM50TA2 PO (11:53)
[2019-03-26] MEDS ORDERED: INSU100I13 SQ (11:53)
[2019-03-26] MEDS ORDERED: FURO20TA3 PO (11:53)
[2019-03-26] MEDS ORDERED: INSU100C SQ-INSULIN (11:53)
[2019-03-26] MEDS ORDERED: AZIT500T5 PO (11:59)
[2019-03-26] MEDS ORDERED: TRAZ50TA66 PO (11:59)
[2019-03-26] MEDS ORDERED: SODIUM CHLORIDE FLUSH 10ML SYR IVF ONE (12:00)
[2019-03-26 12:17] LABS: ALBUMIN 2.6 g/dL (3.4-5.0); CALCIUM 8.7 mg/dL (8.5-10.1); CHLORIDE 109 mmol/L (98-107); CREATININE 1.53 mg/dL (0.7-1.3)
[2019-03-26 12:21] LABS: TROPONIN I < 0.015 ng/mL (0.000-0.045)
[2019-03-26 12:28] LABS: ANION GAP 6 mmol/L (5-15)
--- NOTE | 2019-03-26 12:30 | NUR ---
pt has healing wound on left great toe, and healing wound on right medial lower leg which is [facility]. Pt has redness noted on coccyx.
[2019-03-26] MEDS ORDERED: CALCIUM CHLORIDE 10%, 10ML SYR ONE (12:37)
[2019-03-26] MEDS ORDERED: SODIUM BICARB 8.4%, 50ML SYRINGE ONE (12:37)
[2019-03-26] MEDS ORDERED: INSULIN SINGLE DOSE, ER SQ-INSULIN ONE (12:38)
[2019-03-26] MEDS ORDERED: ALBUTEROL/IPRATROPIUM 2.5MG/0.5MG, 3 ML ONE (12:41)
[2019-03-26] MEDS ORDERED: ALBUTEROL SULFATE 2.5 MG/3 ML ONE (12:44)
[2019-03-26] MEDS ORDERED: ALBUTEROL SULFATE 2.5MG/0.5ML ONE (12:44)
[2019-03-26 12:53] LABS: MEAN CORPUSCULAR HEMOGLOBIN 27.4 pg (27.5-34.5); MEAN CORPUSCULAR HGB CONC 31.7 g/dL (33.2-36.2); MEAN CORPUSCULAR VOLUME 86.4 fL (81-97); PLATELET COUNT 151 x10^3/uL (130-400); RED BLOOD COUNT 4.19 x10^6/uL (4.38-5.82); RED CELL DISTRIBUTION WIDTH 17.4 % (9.4-14.8)
[2019-03-26] MEDS ORDERED: ALBUTEROL 0.5%, 20ML NPPB ONE (13:00)
[2019-03-26] MEDS ORDERED: INSULIN REGULAR 100 UNITS/ML, 3ML VIAL IVPush ONE ×2 (13:00→16:30)
[2019-03-26] MEDS ORDERED: SODIUM BICARB 8.4%, 50ML SYRINGE IVPush ONE (13:00)
[2019-03-26] MEDS ORDERED: CALCIUM CHLORIDE 10%, 10ML SYR IVPush ONE (13:00)
[2019-03-26] MEDS ORDERED: SODIUM CHLORIDE 0.9% 1,000ML IVBOLUS ONE (13:00)
[2019-03-26] MEDS ORDERED: DEXTROSE 50%, 50ML SYRINGE IVPush ONE ×3 (13:00→20:30)
[2019-03-26] MEDS ORDERED: SODIUM POLY SULFONATE UDC 15 GM/60 ML PO ONE (13:00)
--- NOTE | 2019-03-26 13:02 | NUR ---
pT NOT GIVEN kAYEXELATE DUE TO DECREASED LOC. PT UNABLE TO MAITAIN AROUSAL FOR SWALLOWING,ASPIRATION RISK. ERP AWARE PT MEDICATED ORDERED, ALL LABS SENT
[2019-03-26 13:07] LABS: ALBUMIN 2.6 g/dL (3.4-5.0); ANION GAP 5 mmol/L (5-15); CALCIUM 8.7 mg/dL (8.5-10.1); CHLORIDE 109 mmol/L (98-107); CREATININE 1.55 mg/dL (0.7-1.3)
[2019-03-26 13:16] LABS: BASOPHILS # (AUTO) 0.01 x10^3/uL (0-0.1); BASOPHILS % (AUTO) 0 % (0-1); EOSINOPHILS # (AUTO) 0.04 x10^3/uL (0-0.4); EOSINOPHILS % (AUTO) 1 % (1-7); LYMPHOCYTES % (AUTO) 6 % (22-44); MD SCAN; MONOCYTES # (AUTO) 0.25 x10^3/uL (0.2-0.8); MONOCYTES % (AUTO) 3 % (2-9); NEUTROPHILS # (AUTO) 7.73 x10^3/uL (1.8-6.8); NEUTROPHILS % (AUTO) 91 % (42-75)
--- NOTE | 2019-03-26 13:20 | NUR ---
ERP notified of repeat potassium level 7.7
--- NOTE | 2019-03-26 13:40 | NUR ---
Straight cath performed and sent to lab.
[2019-03-26] MEDS ORDERED: SODIUM CHLORIDE 0.9% 1,000 ML IV ONE (14:02)
--- NOTE | 2019-03-26 14:30 | NUR ---
TO CT VIA [facility]
[2019-03-26 14:40] LABS: MICROSCOPIC INDICATED
[2019-03-26] MEDS ORDERED: SODIUM CHLORIDE 0.9% 1,000 ML IV SCH (15:00)
--- NOTE | 2019-03-26 15:12 | NUR ---
Report to [facility] [employer] Ready for pt transfer
[2019-03-26 15:16] LABS: CULTURE INDICATED? NO
[2019-03-26 15:18] LABS: ALBUMIN 2.5 g/dL (3.4-5.0); ANION GAP 7 mmol/L (5-15); CALCIUM 9.1 mg/dL (8.5-10.1); CHLORIDE 110 mmol/L (98-107); CREATININE 1.52 mg/dL (0.7-1.3)
[2019-03-26] MEDS ORDERED: GABAPENTIN 100 MG CAPSULE PO SCH (16:00)
[2019-03-26] MEDS ORDERED: ACETAMINOPHEN 325 MG TABLET PO PRN (16:00)
[2019-03-26] MEDS ORDERED: DIPHENHYDRAMINE/ZINC CRM 2%, 30GM TP PRN (16:00)
[2019-03-26] MEDS ORDERED: ALBUTEROL 0.5%, 20ML NEB PRN (16:00)
[2019-03-26] MEDS ORDERED: ROPINIROLE 0.5MG TABLET PO SCH (16:00)
[2019-03-26] MEDS: HEPARIN 5,000 UNITS/ML, 1ML SQ SCH (16:14)
[2019-03-26] MEDS ORDERED: INSULIN REGULAR 100 UNITS/ML, 3ML VIAL IVPush PRN (16:30)
[2019-03-26] MEDS: PIPERACILLIN/TAZO/PMX 3.375GM 50 ML IV SCH ×2 (17:05→22:47)
[2019-03-26 18:55] LABS: ANION GAP 8 mmol/L (5-15); CALCIUM 8.7 mg/dL (8.5-10.1); CHLORIDE 111 mmol/L (98-107)
[2019-03-26 19:05] LABS: THYROID STIMULATING HORMONE 8.15 mIU/L (0.358-3.740)
[2019-03-26] MEDS: FUROSEMIDE 40 MG/4 ML IV SCH (19:43)
[2019-03-26] MEDS: ALBUTEROL/IPRATROPIUM 2.5MG/0.5MG, 3 ML NPPB SCH (19:55)
[2019-03-26 19:59] LABS: ANION GAP 5 mmol/L (5-15); CALCIUM 8.9 mg/dL (8.5-10.1); CHLORIDE 112 mmol/L (98-107); CREATININE 1.41 mg/dL (0.7-1.3)
[2019-03-26] MEDS: DEXTROSE 50%, 50ML SYRINGE IVPush PRN ×3 (20:32→23:27)
[2019-03-26] MEDS: NYSTATIN TOPICAL POWDER 15GM TP SCH (21:00)
[2019-03-26] MEDS ORDERED: TRAZODONE 50MG TABLET PO SCH (21:00)
[2019-03-26 22:07] VITALS: BP 113/54
[2019-03-27] MEDS ORDERED: DOPAMINE/D5W PMX 250 ML IV PRN
[2019-03-27] MEDS ORDERED: ALBUMIN HUMAN 25% 100 ML IV ONE
[2019-03-27] MEDS ORDERED: ALBUMIN HUMAN 25% 50 ML IV PRN
[2019-03-27] MEDS: HEPARIN 5,000 UNITS/ML, 1ML SQ SCH ×3 (00:09→15:36)
[2019-03-27] MEDS ORDERED: DEXTROSE 50%, 50ML SYRINGE IVPush ONE (00:30)
[2019-03-27] MEDS: LEVOTHYROXINE 125 MCG TABLET PO SCH (04:55)
[2019-03-27] MEDS: PIPERACILLIN/TAZO/PMX 3.375GM 50 ML IV SCH ×3 (04:55→20:48)
[2019-03-27 05:09] LABS: BASOPHILS # (AUTO) 0.02 x10^3/uL (0-0.1); BASOPHILS % (AUTO) 0 % (0-1); EOSINOPHILS # (AUTO) 0.09 x10^3/uL (0-0.4); EOSINOPHILS % (AUTO) 1 % (1-7); LYMPHOCYTES # (AUTO) 0.48 x10^3/uL (1-3.4); LYMPHOCYTES % (AUTO) 5 % (22-44); MD NO; MEAN CORPUSCULAR HEMOGLOBIN 26.7 pg (27.5-34.5); MEAN CORPUSCULAR HGB CONC 31.1 g/dL (33.2-36.2); MEAN CORPUSCULAR VOLUME 85.7 fL (81-97); MEAN PLATELET VOLUME 8.2 fL (7.4-10.4); MONOCYTES # (AUTO) 0.26 x10^3/uL (0.2-0.8); MONOCYTES % (AUTO) 3 % (2-9); NEUTROPHILS # (AUTO) 8.51 x10^3/uL (1.8-6.8); NEUTROPHILS % (AUTO) 91 % (42-75); PLATELET COUNT 100 x10^3/uL (130-400); RED BLOOD COUNT 4.07 x10^6/uL (4.38-5.82); RED CELL DISTRIBUTION WIDTH 17.5 % (9.4-14.8)
[2019-03-27 05:12] LABS: CALCIUM 8.7 mg/dL (8.5-10.1); CREATININE 1.01 mg/dL (0.7-1.3)
[2019-03-27 05:33] LABS: ANION GAP 5 mmol/L (5-15); CHLORIDE 106 mmol/L (98-107)
[2019-03-27] MEDS: OMEPRAZOLE 20 MG CAPSULE.DR PO SCH (07:30)
[2019-03-27] MEDS: ALBUTEROL/IPRATROPIUM 2.5MG/0.5MG, 3 ML NPPB SCH ×4 (07:32→18:56)
[2019-03-27] MEDS: CLOPIDOGREL 75 MG TABLET PO SCH (08:37)
[2019-03-27] MEDS: TAMSULOSIN 0.4 MG CAP.ER.24H PO SCH (08:37)
[2019-03-27] MEDS: NYSTATIN TOPICAL POWDER 15GM TP SCH ×2 (09:00→21:00)
[2019-03-27] MEDS ORDERED: FUROSEMIDE 20 MG TABLET PO SCH (09:00)
[2019-03-27] MEDS ORDERED: ZIPRASIDONE 20 MG INJ IM ONE (09:22)
[2019-03-27] MEDS: ZIPRASIDONE 20 MG INJ IM PRN ×3 (09:25→21:34)
[2019-03-27] MEDS: FUROSEMIDE 40 MG/4 ML IV SCH ×2 (09:40→20:48)
[2019-03-27 12:04] LABS: FREE T4 (FREE THYROXINE) 0.92 ng/dL (0.76-1.46)
[2019-03-27] MEDS ORDERED: ALBUMIN HUMAN 25% 100 ML ONE (13:37)
[2019-03-27] MEDS: methylPREDNISolone SOD SUCC 125 MG/2 ML IVPush SCH (15:32)
[2019-03-27] MEDS: LEVOTHYROXINE 100 MCG INJ IVPush SCH (15:37)
[2019-03-27 18:40] LABS: ANION GAP 3 mmol/L (5-15); CALCIUM 8.3 mg/dL (8.5-10.1); CHLORIDE 103 mmol/L (98-107); CREATININE 1.07 mg/dL (0.7-1.3)
[2019-03-27 22:42] LABS: MICROSCOPIC AUTO
[2019-03-27 23:08] LABS: CHLORIDE,URINE RANDOM 122 mmol/L; POTASSIUM,URINE RANDOM 20 mmol/L; SODIUM,URINE RANDOM 108 mmol/L
[2019-03-28] MEDS: methylPREDNISolone SOD SUCC 125 MG/2 ML IVPush SCH (00:37)
[2019-03-28] MEDS: HEPARIN 5,000 UNITS/ML, 1ML SQ SCH ×4 (00:37→23:54)
[2019-03-28] MEDS: ZIPRASIDONE 20 MG INJ IM PRN ×3 (01:25→15:14)
[2019-03-28] MEDS: LEVOTHYROXINE 125 MCG TABLET PO SCH (02:16)
[2019-03-28] MEDS: PIPERACILLIN/TAZO/PMX 3.375GM 50 ML IV SCH ×2 (02:16→10:13)
[2019-03-28 04:32] LABS: ALANINE AMINOTRANSFERASE 23 U/L (12-78); ALBUMIN 2.7 g/dL (3.4-5.0); ANION GAP 8 mmol/L (5-15); CALCIUM 8.4 mg/dL (8.5-10.1); CHLORIDE 101 mmol/L (98-107); CREATININE 1.61 mg/dL (0.7-1.3)
[2019-03-28 04:34] LABS: ALKALINE PHOSPHATASE 115 U/L (45-117); BILIRUBIN,TOTAL 1.2 mg/dL (0.2-1.0); TOTAL PROTEIN 6.7 g/dL (6.4-8.2)
[2019-03-28 04:49] LABS: BASOPHILS # (AUTO) 0.03 x10^3/uL (0-0.1); BASOPHILS % (AUTO) 0 % (0-1); EOSINOPHILS % (AUTO) 0 % (1-7); LYMPHOCYTES # (AUTO) 0.28 x10^3/uL (1-3.4); LYMPHOCYTES % (AUTO) 3 % (22-44); MD SCAN; MEAN CORPUSCULAR HEMOGLOBIN 27.2 pg (27.5-34.5); MEAN CORPUSCULAR HGB CONC 32.1 g/dL (33.2-36.2); MEAN CORPUSCULAR VOLUME 84.6 fL (81-97); MEAN PLATELET VOLUME 8.3 fL (7.4-10.4); MONOCYTES # (AUTO) 0.11 x10^3/uL (0.2-0.8); MONOCYTES % (AUTO) 1 % (2-9); NEUTROPHILS # (AUTO) 9.36 x10^3/uL (1.8-6.8); NEUTROPHILS % (AUTO) 96 % (42-75); PLATELET COUNT 69 x10^3/uL (130-400); RED BLOOD COUNT 4.08 x10^6/uL (4.38-5.82)
[2019-03-28] MEDS: ALBUTEROL/IPRATROPIUM 2.5MG/0.5MG, 3 ML NPPB SCH (06:48)
[2019-03-28] MEDS: OMEPRAZOLE 20 MG CAPSULE.DR PO SCH (07:30)
[2019-03-28] MEDS: TAMSULOSIN 0.4 MG CAP.ER.24H PO SCH (09:00)
[2019-03-28] MEDS: NYSTATIN TOPICAL POWDER 15GM TP SCH (09:00)
[2019-03-28] MEDS: CLOPIDOGREL 75 MG TABLET PO SCH (09:00)
--- NOTE | 2019-03-28 10:07 | NUR ---
TF Recommendations as needed: Nepro @ 50 ml/hr
[2019-03-28] MEDS: FUROSEMIDE 40 MG/4 ML IV SCH (10:10)
[2019-03-28] MEDS: LEVOTHYROXINE 100 MCG INJ IVPush SCH (10:10)
[2019-03-28] MEDS ORDERED: IRON SUCROSE COMPLEX 100MG/5ML IV SCH (11:30)
[2019-03-28] MEDS ORDERED: MORPHINE SULFATE 4 MG/ML, 1ML IVPush PRN (14:00)
[2019-03-28] MEDS ORDERED: MORP4VIA IVPush (14:25)
[2019-03-28 16:45] LABS: CALCIUM 8.7 mg/dL (8.5-10.1)
[2019-03-28 19:39] VITALS: BP 153/75
[2019-03-29 00:13] VITALS: BP 143/73
[2019-03-29 04:38] LABS: BASOPHILS # (AUTO) 0.01 x10^3/uL (0-0.1); BASOPHILS % (AUTO) 0 % (0-1); EOSINOPHILS % (AUTO) 0 % (1-7); LYMPHOCYTES # (AUTO) 0.55 x10^3/uL (1-3.4); LYMPHOCYTES % (AUTO) 7 % (22-44); MD NO; MEAN CORPUSCULAR HGB CONC 31.7 g/dL (33.2-36.2); MEAN CORPUSCULAR VOLUME 85.4 fL (81-97); MEAN PLATELET VOLUME 7.9 fL (7.4-10.4); MONOCYTES # (AUTO) 0.65 x10^3/uL (0.2-0.8); MONOCYTES % (AUTO) 8 % (2-9); NEUTROPHILS # (AUTO) 6.86 x10^3/uL (1.8-6.8); NEUTROPHILS % (AUTO) 85 % (42-75); PLATELET COUNT 125 x10^3/uL (130-400); RED BLOOD COUNT 4.17 x10^6/uL (4.38-5.82); RED CELL DISTRIBUTION WIDTH 16.9 % (9.4-14.8)
[2019-03-29 04:48] LABS: ALBUMIN 2.4 g/dL (3.4-5.0); ANION GAP 10 mmol/L (5-15); CHLORIDE 102 mmol/L (98-107)
[2019-03-29 04:52] LABS: ALANINE AMINOTRANSFERASE 19 U/L (12-78); ALKALINE PHOSPHATASE 111 U/L (45-117); BILIRUBIN,TOTAL 0.5 mg/dL (0.2-1.0); CREATININE 2.19 mg/dL (0.7-1.3); TOTAL PROTEIN 6.8 g/dL (6.4-8.2)
[2019-03-29 06:48] VITALS: BP 140/70
[2019-03-29] MEDS: TAMSULOSIN 0.4 MG CAP.ER.24H PO SCH (09:00)
[2019-03-29] MEDS: HEPARIN 5,000 UNITS/ML, 1ML SQ SCH ×2 (09:15→16:00)
[2019-03-29] MEDS ORDERED: ZIPRASIDONE 20 MG INJ IM PRN (11:00)
[2019-03-29 13:23] VITALS: BP 124/74
== END 2019-03-29 17:14 | DRG 682 ==
LOC: ED 14:08 → EDIP 14:43 → CCU 15:24 → 3NW 03-28 17:20
PROVIDERS: ADMIT Family Medicine; ATTEND Family Medicine
PROC: 02HV33Z Insertion of Infusion Device into Superior Vena Cava, Percutaneous Approach (ICD-10-PCS; principal; 2019-03-26)
PROC: B548ZZA Ultrasonography of Superior Vena Cava, Guidance (ICD-10-PCS; 2019-03-26)
PROC: 5A1D70Z Performance of Urinary Filtration, Intermittent, Less than 6 Hours Per Day (ICD-10-PCS; 2019-03-26)
PROC: 0T9B70Z Drainage of Bladder with Drainage Device, Via Natural or Artificial Opening (ICD-10-PCS; 2019-03-26)
PROC: 5A1D70Z Performance of Urinary Filtration, Intermittent, Less than 6 Hours Per Day (ICD-10-PCS; 2019-03-27)
DX: N17.9 Acute kidney failure, unspecified (principal); J96.01 Acute respiratory failure with hypoxia; I13.0 Hypertensive heart and chronic kidney disease with heart failure and stage 1 through stage 4 chronic kidney disease, or unspecified chronic kidney disease; G93.40 Encephalopathy, unspecified; J44.1 Chronic obstructive pulmonary disease with (acute) exacerbation; D76.3 Other histiocytosis syndromes; I50.22 Chronic systolic (congestive) heart failure; J98.11 Atelectasis; I42.9 Cardiomyopathy, unspecified; D64.9 Anemia, unspecified; E03.9 Hypothyroidism, unspecified; E11.22 Type 2 diabetes mellitus with diabetic chronic kidney disease; E11.51 Type 2 diabetes mellitus with diabetic peripheral angiopathy without gangrene; E11.649 Type 2 diabetes mellitus with hypoglycemia without coma; E78.5 Hyperlipidemia, unspecified; E83.52 Hypercalcemia; E87.5 Hyperkalemia; F03.90 Unspecified dementia, unspecified severity, without behavioral disturbance, psychotic disturbance, mood disturbance, and anxiety; I25.10 Atherosclerotic heart disease of native coronary artery without angina pectoris; I34.0 Nonrheumatic mitral (valve) insufficiency; I44.0 Atrioventricular block, first degree; K21.9 Gastro-esophageal reflux disease without esophagitis; N18.3 Chronic kidney disease, stage 3 (moderate); N40.0 Benign prostatic hyperplasia without lower urinary tract symptoms; Z51.5 Encounter for palliative care; Z66 Do not resuscitate; Z78.1 Physical restraint status; I25.2 Old myocardial infarction; Z79.02 Long term (current) use of antithrombotics/antiplatelets; Z79.4 Long term (current) use of insulin; Z79.899 Other long term (current) drug therapy; Z82.49 Family history of ischemic heart disease and other diseases of the circulatory system; Z85.118 Personal history of other malignant neoplasm of bronchus and lung; Z85.46 Personal history of malignant neoplasm of prostate; Z86.14 Personal history of Methicillin resistant Staphylococcus aureus infection; Z87.891 Personal history of nicotine dependence; Z90.79 Acquired absence of other genital organ(s); Z99.81 Dependence on supplemental oxygen; Z90.49 Acquired absence of other specified parts of digestive tract; Z90.89 Acquired absence of other organs; Z95.828 Presence of other vascular implants and grafts; Z91.048 Other nonmedicinal substance allergy status
CPT/HCPCS: 36415; 36556; 36600; 51702; 70450; 71045; 76937; 77001; 80048; 80053; 81001; 82040; 82306; 82310; 82436; 82533; 82550; 82728; 82803; 82962; 83540; 83550; 83605; 83735; 83970; 84100; 84133; 84145; 84300; 84439; 84443; 84481; 84484; 84550; 85025; 86705; 86706; 86803; 87040; 87081; 87340; 93005; 94640; 96365; 96366; 96368; 96375; C8929; G0378; J1644; J1815; J1940; J2543; J3486; J7620; P9047; Q9957; C1751; J1642; J2270; J2930; J7030